=== PATIENT | female | born 2000 | race Caucasian/White ===

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

== ENCOUNTER 2022-01-01 23:30 | Emergency (ER) | payer OTHER ==
[2022-01-01 23:40] VITALS: RESP 16; TEMP 97.1
[2022-01-02] MEDS ORDERED: ORPHENADRINE 30 MG/ML 2 ML VIAL IM STA (01:52)
[2022-01-02] MEDS ORDERED: KETOROLAC 15 MG/ML 1 ML VIAL IM STA (01:53)
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
--- NOTE | 2022-01-02 02:37 | XR ---
EXAMINATION TYPE: XR cervical spine comp DATE OF EXAM: 01/02/2022 COMPARISON: NONE HISTORY: Neck pain TECHNIQUE: 5 views FINDINGS: Cervical vertebra have normal spacing and alignment. Posterior elements are intact. [place] axial facet joint is normal. There are no cervical ribs. Neural foramina appear normal. IMPRESSION: Normal cervical spine exam
[2022-01-02 02:59] VITALS: BP 110/57; PULSE 97
== END 2022-01-02 02:58 | disposition home or self-care (01) ==
LOC: EC 23:30
DX: S16.1XXA Strain of muscle, fascia and tendon at neck level, initial encounter (principal); S29.012A Strain of muscle and tendon of back wall of thorax, initial encounter; J45.909 Unspecified asthma, uncomplicated; F32.A Depression, unspecified; F41.9 Anxiety disorder, unspecified; F17.290 Nicotine dependence, other tobacco product, uncomplicated; Z79.899 Other long term (current) drug therapy; V89.2XXA Person injured in unspecified motor-vehicle accident, traffic, initial encounter; Y92.410 Unspecified street and highway as the place of occurrence of the external cause
CPT/HCPCS: 72050; 99284; 96372 ×2; J2360; J1885

== ENCOUNTER 2022-05-05 00:07 | Observation (INO) | payer OTHER ==
[2022-05-05] MEDS ORDERED: SODIUM CHLORIDE 0.9% 1,000 ML IV STA (01:18)
--- NOTE | 2022-05-05 01:22 | ED ---
General Adult HPI - General Chief complaint: Arrhythmia/Palpitations Stated complaint: Palpitations, Weakness, Nausea Time Seen by Provider: 05/05/22 01:02 Source: patient Mode of arrival: ambulatory Limitations: no limitations - History of Present Illness Initial comments: Dictation was produced using [employer] dictation software. please excuse any g rammatical, word or spelling errors. Chief Complaint: 22-year-old female presents to the emergency department for nausea and chest tightness History of Present Illness: Patient 22-year-old female she was at a concert just today. Patient states she had half an alcoholic beverage. There is a concert states she started to feel some chest tightness nausea and perhaps a little presyncopal. Patient so the medic at the concert word EKG was performed so that her EKG some minor abnormalities and she was told to follow up with the emergency department. Patient has no significant medical history. Patient states she has tightness to the substernal area. Nonradiating not associated w ith diaphoresis. States that her grandfather has history of cardiomyopathy. Denies any shortness of breath. The ROS documented in this emergency department record has been reviewed and confirmed by me. Those systems with pertinent positive or negative responses have been documented in the HPI. All other systems are other negative and/or noncontributory. PHYSICAL EXAM: General Impression: Alert and oriented x3, not in acute distress HEENT: Normocephalic atraumatic, extra-ocular movements intact, pupils equal and reactive to light bilaterally, mucous membranes moist. Cardiovascular: Heart regular rate and rhythm Chest: Able to complete full sentences, no retractions, no tachypnea Abdomen: abdomen soft, non-tender, non-distended, no organomegaly Musculoskeletal: Pulses present and equal in all extremities, no peripheral edema Motor: no focal deficits noted Neurological: CN II-XII grossly intact, no focal motor or sensory deficits noted Skin: Intact with no visualized rashes Psych: Normal affect and mood ED course: 22-year-old well-appearing female presents to the emergency dep artment for chest tightness, presyncope and nausea. vital signs upon arrival are within acceptable limits. EKG shows no signs of ischemia or infarction. Laboratory evaluation obtained. CBC unremarkable. Metabolic panel showed glucose of 72. Patient is given oral glucose. Within improvement to 87. Initial troponin is negative. Disposition rashes are discussed. Patient agreeable to stay for second troponin. Second troponin ordered 4 hours later with elevation 0.018. Patient resting comfortably at the bedside. Patient is agreeable for observation admission with cardiology consultation. Patient given aspirin. EKG interpretation: Ventricular rate 61, normal sinus rhythm,. 152, QS 19, QTC 414. No [place] prolongation, no QTC prolongation, no ST or T-wave changes noted. . Overall, this EKG is unremarkable - Related Data Home Medications Medication Instructions Recorded Confirmed Mirtazapine [Remeron] 15 mg PO HS 01/16/15 01/30/15 Previous Rx's Medication Instructions Recorded RX: Ibuprofen [Motrin] 600 mg PO Q8HR PRN #30 tab 01/30/15 Acetaminophen [Tylenol] 500 mg PO Q4-6H PRN #24 tab 01/02/22 Cyclobenzaprine [Flexeril] 10 mg PO TID PRN #20 tab 01/02/22 RX: Ibuprofen [Motrin] 600 mg PO Q8HR PRN #30 tab 01/02/22 Allergies Allergy/AdvReac Type Severity Reaction Status Date / Time No Known Allergies Allergy Verified 05/05/22 00:48 Review of Systems ROS Statement: Those systems with pertinent positive or pertinent negative responses have been documented in the HPI. ROS Other: All systems not noted in ROS Statement are negative. Past Medical History Past Medical History: Asthma History of Any Multi-Drug Resistant Organisms: None Reported Past Surgical History: Adenoidectomy, Tonsillectomy Past Psychological History: Anxiety, Depression, PTSD Smoking Status: Vaper Past Alcohol Use History: Occasional Past Drug Use History: None Reported General Exam Limitations: no limitations Course Vital Signs 05/05/22 00:48 Temperature 98.2 F Pulse Rate 71 Respiratory 16 Rate Blood Pressure 119/79 O2 Sat by Pulse 98 Oximetry Medical Decision Making - Lab Data Result diagrams: 05/05/22 01:30 05/05/22 01:30 Lab Results 05/05/22 05/05/22 05/05/22 Range/Units 01:30 01:30 01:30 WBC 9.1 (3.8-10.6) k/uL RBC 4.39 (3.80-5.40) m/uL Hgb 12.8 (11.4-16.0) gm/dL Hct 38.8 (34.0-46.0) % MCV 88.3 (80.0-100.0) fL MCH 29.1 (25.0-35.0) pg MCHC 33.0 (31.0-37.0) g/dL RDW 13.5 (11.5-15.5) % Plt Count 330 (150-450) k/uL MPV 7.3 Neutrophils % 54 % Lymphocytes % 35 % Monocytes % 5 % Eosinophils % 4 % Basophils % 0 % Neutrophils # 4.9 (1.3-7.7) k/uL Lymphocytes # 3.2 (1.0-4.8) k/uL Monocytes # 0.5 (0-1.0) k/uL Eosinophils # 0.3 (0-0.7) k/uL Basophils # 0.0 (0-0.2) k/uL Sodium 140 (137-145) mmol/L Potassium 3.7 (3.5-5.1) mmol/L Chloride 103 (98-107) mmol/L Carbon Dioxide 25 (22-30) mmol/L Anion Gap 12 mmol/L BUN 16 (7-17) mg/dL Creatinine 0.42 L (0.52-1.04) mg/dL Est GFR (CKD-EPI)AfAm >90 (>60 ml/min/1.73 sqM) Est GFR (CKD-EPI)NonAf >90 (>60 ml/min/1.73 sqM) Glucose 72 L (74-99) mg/dL POC Glucose (mg/dL) (70-110) mg/dL POC Glu Power Cutting Machine Operator ID Calcium 9.2 (8.4-10.2) mg/dL Magnesium 1.8 (1.6-2.3) mg/dL Troponin I <0.012 (0.000-0.034) ng/mL Urine HCG, Qual (Not Detectd) 05/05/22 05/05/22 05/05/22 Range/Units 01:37 05:03 05:26 WBC (3.8-10.6) k/uL RBC (3.80-5.40) m/uL Hgb (11.4-16.0) gm/dL Hct (34.0-46.0) % MCV (80.0-100.0) fL MCH (25.0-35.0) pg MCHC (31.0-37.0) g/dL RDW (11.5-15.5) % Plt Count (150-450) k/uL MPV Neutrophils % % Lymphocytes % % Monocytes % % Eosinophils % % Basophils % % Neutrophils # (1.3-7.7) k/uL Lymphocytes # (1.0-4.8) k/uL Monocytes # (0-1.0) k/uL Eosinophils # (0-0.7) k/uL Basophils # (0-0.2) k/uL Sodium (137-145) mmol/L Potassium (3.5-5.1) mmol/L Chloride (98-107) mmol/L Carbon Dioxide (22-30) mmol/L Anion Gap mmol/L BUN (7-17) mg/dL Creatinine (0.52-1.04) mg/dL Est GFR (CKD-EPI)AfAm (>60 ml/min/1.73 sqM) Est GFR (CKD-EPI)NonAf (>60 ml/min/1.73 sqM) Glucose (74-99) mg/dL POC Glucose (mg/dL) 87 (70-110) mg/dL POC Glu Power Cutting Machine Operator ID Merle Rojas Calcium (8.4-10.2) mg/dL Magnesium (1.6-2.3) mg/dL Troponin I 0.018 (0.000-0.034) ng/mL Urine HCG, Qual Not Detected (Not Detectd) Disposition Clinical Impression: Chest pain Disposition: ADMITTED IP TO THIS HOSP Condition: Fair Referrals: Mikhail Perez MD [Primary Care Provider] - 1-2 days
[2022-05-05 01:47] LABS: Basophils % (A) 0 %; Eosinophils # (A) 0.3 k/uL (0-0.7); Eosinophils % (A) 4 %; HCT 38.8 % (34.0-46.0); HGB 12.8 gm/dL (11.4-16.0); Lymphocytes # (A) 3.2 k/uL (1.0-4.8); Lymphocytes % (A) 35 %; MCH 29.1 pg (25.0-35.0); MCV 88.3 fL (80.0-100.0); Mean Platelet Volume 7.3; Monocytes # (A) 0.5 k/uL (0-1.0); Monocytes % (A) 5 %; Neutrophils # (A) 4.9 k/uL (1.3-7.7); Neutrophils % (A) 54 %; Platelet Count 330 k/uL (150-450); RBC 4.39 m/uL (3.80-5.40); RDW 13.5 % (11.5-15.5); WBC 9.1 k/uL (3.8-10.6)
[2022-05-05 02:09] LABS: African American GFR (CKD) >90 (>60 ml/min/1.73 sqM); Anion Gap 12 mmol/L; Blood Urea Nitrogen 16 mg/dL (7-17); Calcium 9.2 mg/dL (8.4-10.2); Carbon Dioxide 25 mmol/L (22-30); Chloride 103 mmol/L (98-107); Glucose 72 mg/dL (74-99); Magnesium 1.8 mg/dL (1.6-2.3); Non-African American GFR(CKD) >90 (>60 ml/min/1.73 sqM); Potassium 3.7 mmol/L (3.5-5.1); Sodium 140 mmol/L (137-145)
--- NOTE | 2022-05-05 02:15 | XR ---
EXAMINATION TYPE: XR chest 2V DATE OF EXAM: 05/05/2022 COMPARISON: 05/27/2019 HISTORY: Chest pain TECHNIQUE: FINDINGS: Heart and mediastinum are normal. Lungs are clear. Diaphragm is normal. Bony thorax appears normal. There are chest leads. IMPRESSION: Normal chest. No change.
[2022-05-05] MEDS ORDERED: ASPIRIN 81 MG PO STA (02:56)
[2022-05-05 05:04] LABS: Glucose,Whole Blood 87 mg/dL (70-110)
[2022-05-05] MEDS ORDERED: NITROGLYCERIN SL TABS 0.4 MG TAB SUBLINGUAL PRN (06:30)
--- NOTE | 2022-05-05 09:21 | P.CRDCN ---
History of Present Illness Consult date: 05/05/22 Requesting physician: Heri Mckeon Reason for Consult (text): chest pain Chief complaint: nausea, weakness, dizziness, chest tightness History of present illness: This is a pleasant 22-year-old female patient with a history of asthma, depression and currently vapes. She drinks socially. She was at a concert yesterday and developed some nausea, weakness, dizziness and chest tightness. S he had had only a half of an alcoholic beverage or to this. She sat down with an ice pack and water and was seen at the medic tent there. Apparently an EKG was done and she was told it was abnormal with sinus arrhythmia and a bundle branch block. After the concert she presented to the emergency department for further evaluation. She continues to have chest tightness which has been fairly constant. Chest x-ray showed normal chest, no change. EKG showed sinus rhythm with sinus arrhythmia, normal EKG. Cardiac enzymes have been unremarkable. The patient stable. She has occasional shortness of breath due to her asthma and uses a pro-air inhaler for this. Denies any edema, orthopnea or PND. She's had no palpitations, syncope. Past Medical History Past Medical History: Asthma History of Any Multi-Drug Resistant Organisms: None Reported Past Surgical History: Adenoidectomy, Tonsillectomy Past Psychological History: Anxiety, Depression, PTSD Smoking Status: Vaper Past Alcohol Use History: Occasional Past Drug Use History: None Reported Medications and Allergies Home Medications Medication Instructions Recorded Confirmed Type Albuterol Sulfate [Proair Hfa] 1 - 2 puff INHALATION RT-QID PRN 05/05/22 05/05/22 History Desvenlafaxine [Pristiq ER] 100 mg PO DAILY@1100 05/05/22 05/05/22 History Naproxen [Naprosyn] 500 mg PO BID PRN 05/05/22 05/05/22 History Allergies Allergy/AdvReac Type Severity Reaction Status Date / Time shellfish derived [Shrimp] Allergy Unknown Verified 05/05/22 07:33 Physical Exam Vitals: Vital Signs Temp Pulse Pulse Resp BP BP Pulse Ox 05/05/22 08:16 98.4 F 53 L 18 120/71 97 05/05/22 06:40 118/69 05/05/22 06:37 118/69 05/05/22 00:48 98.2 F 71 16 119/79 98 Intake and Output 05/04/22 05/05/22 05/05/22 22:59 06:59 14:59 Other: Weight 144.242 kg PHYSICAL EXAMINATION: This is a 22-year-old female in no apparent distress at the time of my examination. VITAL SIGNS: Blood pressure 120/71, heart rate 53, respirations 18, temp 98.4F. Patient is 97 % on room air. HEENT: Head is atraumatic, normocephalic. Pupils are equal, round. Sclerae anicteric. Conjunctivae are clear. Mucous membranes of the mouth are moist. Neck is supple. There is no elevated jugular venous pressure. No carotid bruit is heard. CHEST EXAMINATION: Clear to auscultation bilaterally. No wheezes rales or rhonchi. Respirations even and nonlabored. HEART EXAMINATION: Heart regular, positive S1 and S2. No S3. No S4. No clicks, rubs or murmurs. ABDOMEN: Soft, nontender. Bowel sounds are heard. No organomegaly noted. EXTREMITIES: 2+ peripheral pulses with no evidence of peripheral edema and no calf tenderness noted. NEUROLOGIC EXAMINATION: Patient is awake, alert and oriented x3. Results 05/05/22 01:30 05/05/22 01:30 Cardiac Enzymes 05/05/22 05/05/22 Range/Units 01:30 05:26 Troponin I <0.012 0.018 (0.000-0.034) ng/mL CBC 05/05/22 Range/Units 01:30 WBC 9.1 (3.8-10.6) k/uL RBC 4.39 (3.80-5.40) m/uL Hgb 12.8 (11.4-16.0) gm/dL Hct 38.8 (34.0-46.0) % Plt Count 330 (150-450) k/uL Comprehensive Metabolic Panel 05/05/22 Range/Units 01:30 Sodium 140 (137-145) mmol/L Potassium 3.7 (3.5-5.1) mmol/L Chloride 103 (98-107) mmol/L Carbon Dioxide 25 (22-30) mmol/L BUN 16 (7-17) mg/dL Creatinine 0.42 L (0.52-1.04) mg/dL Glucose 72 L (74-99) mg/dL Calcium 9.2 (8.4-10.2) mg/dL Current Medications Generic Name Dose Route Start Last Admin Trade Name Freq PRN Reason Stop Dose Admin Aspirin 325 mg 05/06/22 09:00 Aspirin 325 Mg Tab PO DAILY NEEMA Nitroglycerin 0.4 mg 05/05/22 06:30 Nitroglycerin Sl Tabs 0.4 Mg Tab SUBLINGUAL Q5M PRN Chest Pain Intake and Output 05/04/22 05/05/22 05/05/22 22:59 06:59 14:59 Other: Weight 144.242 kg 05/05/22 01:30 05/05/22 01:30 EKG Interpretations (text) Sinus rhythm was sinus arrhythmia Assessment and Plan Assessment: #1 symptoms of weakness, nausea, dizziness and chest tightness, acute coronary event has been ruled out #2 asthma #3 nicotine dependence, current every day vaper Plan: From cardiology's perspective patient's symptoms do not seem to be cardiac related. We will obtain a 2-D echo with Doppler study to assess cardiac structure and function as well as a regular exercise stress test to rule out any underlying ischemia. If there are no significant abnormalities, from our standpoint, patient may be discharged home today. TRAVEL ACCOMMODATIONS RATER note has been reviewed, I agree with a documented findings and plan of care. Patient was seen and examined.
--- NOTE | 2022-05-05 11:11 | P.HPIM ---
History of Present Illness H&P Date: 05/05/22 History of Presenting Illness: Patient is a very pleasant 22-year-old female with a past medical history of asthma, depression and nicotine dependence via vaping. She presented to the emergency department with a chief complaint of chest pain. Patient was at a music concert yesterday and reportedly had an alcoholic beverage in which she reports only drinking half of when she suddenly developed some nausea, weakness, dizziness, and chest tightness. Patient reports she initially drinks some water but states the symptoms did not subside so she went to the medic tent and was evaluated and had an EKG completed. Patient reports the medic tent told her she had a sinus arrhythmia and that if chest pain continued she needed to go to the emergency department. Patient reports she went back to the concert and after the concert she continued to feel some chest pains that she came in to the emergency department for evaluation. Patient underwent full evaluation in the emergency department and was found to have a normal EKG showing normal sinus rhythm with sinus arrhythmia at 61 bpm with no noted T wave or ST abnormality showing no signs of acute ischemia. CBC and CMP were completed showing no acute abnormalities. Urine hCG was negative for . Troponin was negative at less than 0.012. Chest x-ray negative for acute cardiopulmonary process. Patient admitted under our services with consultation to cardiology. Review of systems: Pertinent positives and negatives as discussed in HPI, a complete review of systems was performed and all other systems are negative. Physical exam: Vital signs reviewed and stable. General: Nontoxic, no distress and appears stated age. Morbidly obese. Derm: Skin warm and dry, normal coloration for ethnicity. Head: Atraumatic, normocephalic and symmetric. Eyes: EOMs intact, no lid lag, and anicteric sclera Mouth: no lip lesions, mucus membranes moist Cardiovascular: regular rate and rhythm with normal S1S2, no murmur, positive posterior tibial pulses bilaterally, and cap refill < 2 seconds. Lungs: Respirations even, regular, and unlabored on room air. Lungs CTA bilaterally, no rhonchi, no rales, no wheezing, and no accessory muscle usage. Abdominal: soft, nontender to palpation, no guarding, no appreciable organomegaly Ext: ROM intact. No gross muscle atrophy, no edema, no contractures Neuro: Speech clear, face symmetrical and CN II-XII grossly intact with no noted focal neuro deficits Psych: Alert and oriented to person, place, time, and situation. Appropriate and pleasant affect. Assessment and Plan of Care: Chest pain, rule out acute coronary event -Cardiology consult, appreciate further recommendations -Telemetry monitoring -Trend troponins -Cardiac diet, NPO at midnight -Aspirin -Urine drug screen -Echocardiogram Asthma -Patient reports asthma controlled via occasional use of Provera inhaler. Patient reports using approximately 4-6 times per week. Nicotine dependence -Recommend stopping vaping. The patient is admitted with an anticipated less than 2 midnight stay for evaluation of chest pain. CODE STATUS: Full code DVT prophylaxis: SCDs Discussed with: Patient, patient's father, and RN Anticipated discharge date: Likely later today Anticipated discharge place: Home A total of 40 minutes was spent on the care of this complex patient more than 50% of the time was spent in counseling and care coordination. Je Downey NP rendered care for this patient independently, reviewed the findings and plan as documented in the note above. I did not physically speak with or examine the patient on this date. Past Medical History Past Medical History: Asthma History of Any Multi-Drug Resistant Organisms: None Reported Past Surgical History: Adenoidectomy, Tonsillectomy Past Anesthesia/Blood Transfusion Reactions: No Reported Reaction Past Psychological History: Anxiety, Depression, PTSD Smoking Status: Vaper Past Alcohol Use History: Occasional Past Drug Use History: None Reported Medications and Allergies Home Medications Medication Instructions Recorded Confirmed Type Albuterol Sulfate [Proair Hfa] 1 - 2 puff INHALATION RT-QID PRN 05/05/22 05/05/22 History Desvenlafaxine [Pristiq ER] 100 mg PO DAILY@1100 05/05/22 05/05/22 History Naproxen [Naprosyn] 500 mg PO BID PRN 05/05/22 05/05/22 History Allergies Allergy/AdvReac Type Severity Reaction Status Date / Time shellfish derived [Shrimp] Allergy Unknown Verified 05/05/22 07:33 Physical Exam Osteopathic Statement: *. No significant issues noted on an osteopathic structural exam other than those noted in the History and Physical/Consult. Vitals: Vital Signs Temp Pulse Pulse Resp BP BP Pulse Ox 05/05/22 08:16 98.4 F 53 L 18 120/71 97 05/05/22 06:40 118/69 05/05/22 06:37 118/69 05/05/22 00:48 98.2 F 71 16 119/79 98 Intake and Output 05/04/22 05/05/22 05/05/22 22:59 06:59 14:59 Other: Weight 144.242 kg 144.242 kg Results CBC & Chem 7: 05/05/22 01:30 05/05/22 01:30 Labs: Abnormal Lab Results - Last 24 Hours (Table) 05/05/22 Range/Units 01:30 Creatinine 0.42 L (0.52-1.04) mg/dL Glucose 72 L (74-99) mg/dL Thrombosis Risk Factor Assmnt - Choose All That Apply Any of the Below Risk Factors Present?: No Other congenital or acquired thrombophilia - If yes, enter type in comment: No
[2022-05-05] MEDS ORDERED: ALBUTEROL NEBULIZED 2.5 MG/3 ML INHALATION PRN (13:13)
--- NOTE | 2022-05-05 18:12 | CA ---
Transthoracic Echo Report Name: oBubacar Patel Age: 22 Gender: F : 2000 Exam Date: 05/05/2022 10:18 Exam Location: [place] [facility] Ht (in): 69 Wt (lb): 318 Ordering Physician: Kiya Gupta Attending/Referring Phys: [id number], Candy Adapted Physical Education Teacher Michelle Law RDCS Procedure CPT: Indications: chest tightness Cardiac Hx: Technical Quality: Technically difficult study Contrast 1: Lumason Total Dose (mL): 4 Contrast 2: Total Dose (mL): MEASUREMENTS (Male / Female) Normal Values 2D ECHO LV Diastolic Diameter PLAX 5.0 cm 4.2 - 5.9 / 3.9 - 5.3 cm LV Systolic Diameter PLAX 3.3 cm IVS Diastolic Thickness 1.1 cm 0.6 - 1.0 / 0.6 - 0.9 cm LVPW Diastolic Thickness 1.2 cm 0.6 - 1.0 / 0.6 - 0.9 cm LV Relative Wall Thickness 0.5 RV Internal Dim ED PLAX 4.1 cm LA Volume 67.8 cm??? 18 - 58 / 22 - 52 cm??? M-MODE Aortic Root Diameter MM 2.9 cm LA Systolic Diameter MM 3.9 cm LA Ao Ratio MM 1.4 AV Cusp Separation MM 2.2 cm DOPPLER AV Peak Velocity 125.4 cm/s AV Peak Gradient 6.3 mmHg LVOT Peak Velocity 99.9 cm/s LVOT Peak Gradient 4.0 mmHg MV Area PHT 3.7 cm??? Mitral E Point Velocity 88.7 cm/s Mitral A Point Velocity 48.9 cm/s Mitral E to A Ratio 1.8 MV Deceleration Time 207.8 ms MV E' Velocity 10.8 cm/s Mitral E to MV E' Ratio 8.2 TR Peak Velocity 216.9 cm/s TR Peak Gradient 18.8 mmHg Right Ventricular Systolic Press 23.4 mmHg FINDINGS Left Ventricle Mildly increased left ventricular wall thickness. Normal left ventricular systolic function with no obvious regional wall motion abnormalities. Left ventricular ejection fraction is estimated at 55-60 %. Right Ventricle Moderate right ventricular dilatation. Right Atrium Normal right atrial size. Left Atrium Moderately increased left atrial volume. No evidence for an atrial septal defect. Mitral Valve Structurally normal mitral valve. No mitral stenosis, regurgitation or prolapse. Aortic Valve No aortic valve stenosis or regurgitation. Tricuspid Valve Mild tricuspid regurgitation.structurally normal tricuspid valve. Pulmonic Valve Trace pulmonic regurgitation.pulmonic valve not well visualized. Pericardium No pericardial effusion. Aorta Normal size aortic root and proximal ascending aorta. CONCLUSIONS 1. Normal left ventricle size and systolic function X 2. Mild tricuspid regurgitation 3. Dilated right ventricle Previewed by: Dr. Kortney Vasquez MD (Electronically Signed) Final Date: 05 May 2022 18:11
[2022-05-05 22:46] LABS: Urine Alcohol Negative (Negative); Urine Barbiturate Negative (Negative); Urine Cocaine Negative (Negative); Urine Methadone Negative (Negative); Urine Opiates Negative (Negative); Urine Phencyclidine Negative (Negative)
[2022-05-06 04:30] VITALS: RESP 16; TEMP 98.4
[2022-05-06 08:21] VITALS: BP 110/69; PULSE 54
[2022-05-06] MEDS ORDERED: ASPIRIN 325 MG TAB PO SCH (09:00)
[2022-05-06 10:37] LABS: Chol/HDL Ratio 3.05 Ratio; LDL Cholesterol,Calculated 70.5 mg/dL (0.0-131.0)
[2022-05-06] MEDS ORDERED: DESVENLAFAXINE SUCCINATE 50 MG TAB.ER.24H PO SCH (11:00)
--- NOTE | 2022-05-06 12:52 | P.PN ---
Subjective Progress Note Date: 05/06/22 This is a pleasant 22-year-old female patient with a history of asthma, depression and currently vapes. She drinks socially. She was at a concert yesterday and developed some nausea, weakness, dizziness and chest tightness. She had had only a half of an alcoholic beverage or to this. She sat down with an ice pack and water and was seen at the medic tent there. Apparently an EKG was done and she was told it was abnormal with sinus arrhythmia and a bundle branch block. After the concert she presented to the emergency department for further evaluation. She continues to have chest tightness which has been fairly constant. Chest x-ray showed normal chest, no change. EKG showed sinus rhythm with sinus arrhythmia, normal EKG. Cardiac enzymes have been unremarkable. The patient stable. She has occasional shortness of breath due to her asthma and uses a pro-air inhaler for this. Denies any edema, orthopnea or PND. She's had no palpitations, syncope. 05/06/2022 Patient was seen and examined resting comfortably in bed. She's had no further complaints of chest discomfort. She's had no dizziness, lightheadedness or syncope. Echocardiogram with Doppler study showed normal LV systolic function with an ejection fraction of 55-60%, mild TR and dilated right ventricle. Exercise stress test was unremarkable. Vital signs have been stable. Objective - Vital Signs Vital signs: Vital Signs Temp 98.4 F 05/06/22 07:00 Pulse 54 L 05/06/22 07:00 Resp 16 05/06/22 03:25 BP 110/69 05/06/22 07:00 Pulse Ox 96 05/06/22 07:00 FiO2 Intake & Output 05/05/22 05/06/22 05/06/22 18:59 06:59 18:59 Weight 144.242 kg Other: # Voids 1 1 - Exam HEENT: Head is atraumatic, normocephalic. Pupils are equal, round. Sclerae anicteric. Conjunctivae are clear. Mucous membranes of the mouth are moist. Neck is supple. There is no elevated jugular venous pressure. No carotid bruit is heard. CHEST EXAMINATION: Clear to auscultation bilaterally. No wheezes rales or rhonchi. Respirations even and nonlabored. HEART EXAMINATION: Heart regular, positive S1 and S2. No S3. No S4. No clicks, rubs or murmurs. ABDOMEN: Soft, nontender. Bowel sounds are heard. No organomegaly noted. EXTREMITIES: 2+ peripheral pulses with no evidence of peripheral edema and no calf tenderness noted. NEUROLOGIC EXAMINATION: Patient is awake, alert and oriented x3. - Labs CBC & Chem 7: 05/05/22 01:30 05/05/22 01:30 Assessment and Plan Assessment: #1 symptoms of weakness, nausea, dizziness and chest tightness, acute coronary event has been ruled out #2 asthma #3 nicotine dependence, current every day vaper Plan: From cardiology's perspective patient's symptoms do not seem to be cardiac related. From our standpoint patient may be discharged home today. STATE PATROL OFFICER note has been reviewed, I agree with a documented findings and plan of care. Patient was seen and examined.
--- NOTE | 2022-05-06 14:09 | P.DS ---
Providers Date of admission: 05/05/22 06:30 Expected date of discharge: 05/06/22 Attending physician: Heri Mckeon MD Consults: 05/05/22 06:30 Consult Physician Urgent Consulting Provider: Kortney Vasquez Consult Reason/Comments: chest pain Do you want consulting provider notified?: Yes Primary care physician: [facility] Course: Discharge Diagnosis: Chest pain, acute coronary event ruled out. Pleurisy likely secondary to vaping associated lung injury inpatient with asthma. Mild intermittent asthma Along with nicotine dependence via vaping, was recommended patient stop all nicotine use. Morbid obesity with BMI 47.0 kg/m, recommend outpatient weight loss management program Hospital Course: Patient is a very pleasant 22-year-old female with a past medical history of asthma, depression and nicotine dependence via vaping. She presented to the emergency department with a chief complaint of chest pain. Patient was at a music concert yesterday and reportedly had an alcoholic beverage in which she reports only drinking half of when she suddenly developed some nausea, weakness, dizziness, and chest tightness. Patient reports she initially drinks some water but states the symptoms did not subside so she went to the medic tent and was evaluated and had an EKG completed. Patient reports the medic tent told her she had a sinus arrhythmia and that if chest pain continued she needed to go to the emergency department. Patient reports she went back to the concert and after the concert she continued to feel some chest pains that she came in to the emergency department for evaluation. Patient underwent full evaluation in the emergency department and was found to have a normal EKG showing normal sinus rhythm with sinus arrhythmia at 61 bpm with no noted T wave or ST abnormality showing no signs of acute ischemia. CBC and CMP were completed showing no acute abnormalities. Urine hCG was negative for . Troponin was negative at less than 0.012. Chest x-ray negative for acute cardiopulmonary process. Patient admitted under our services with consultation to cardiology. echocardiogram completed revealing a normal EF of 55-60% with a dilated right ventricle. D-dimer was completed secondary to concerns of dilated right ventricle d-dimer negative at 0.22. Troponins negative at less than 0.012, 0.018 and less than 0.012. urine drug screen negative. Lipid profile normal findings. Cardiology evaluated and patient underwent an Exercise stress was completed showing a decreased exercise tolerance with patient's reports of chest tightness believed to be noncardiac related as patient had normal EKG response to exercise with no evidence of exercise-induced ischemia. chest pain believed to be secondary to pleurisy likely secondary to vaping associated lung injury inpatient with asthma. cardiology recommending outpatient follow-up in the office. Patient medically stable for discharge at this time. It was recommended patient stop all nicotine use. Physical exam: Vital signs reviewed and stable. General: Nontoxic, no distress and appears stated age. Morbidly obese. Derm: Skin warm and dry, normal coloration for ethnicity. Head: Atraumatic, normocephalic and symmetric. Eyes: EOMs intact, no lid lag, and anicteric sclera Mouth: no lip lesions, mucus membranes moist Cardiovascular: regular rate and rhythm with normal S1S2, no murmur, positive posterior tibial pulses bilaterally, and cap refill < 2 seconds. Lungs: Respirations even, regular, and unlabored on room air. Lungs CTA bilaterally, no rhonchi, no rales, no wheezing, and no accessory muscle usage. Abdominal: soft, nontender to palpation, no guarding, no appreciable organomegaly Ext: ROM intact. No gross muscle atrophy, no edema, no contractures Neuro: Speech clear, face symmetrical and CN II-XII grossly intact with no noted focal neuro deficits Psych: Alert and oriented to person, place, time, and situation. Appropriate and pleasant affect. A total of 39 minutes of time were spent preparing this complex discharge summary. Pt was discharged on 05/06/22 at 10:04 AM. Patient Condition at Discharge: Stable Plan - Discharge Summary Discharge Rx Participant: Yes New Discharge Prescriptions: Continue Naproxen [Naprosyn] 500 mg PO BID PRN PRN Reason: Pain Albuterol Sulfate [Proair Hfa] 1 - 2 puff INHALATION RT-QID PRN PRN Reason: Shortness Of Breath Desvenlafaxine [Pristiq ER] 100 mg PO DAILY@1100 Discharge Medication List Albuterol Sulfate [Proair Hfa] 1 - 2 puff INHALATION RT-QID PRN 05/05/22 [History] Desvenlafaxine [Pristiq ER] 100 mg PO DAILY@1100 05/05/22 [History] Naproxen [Naprosyn] 500 mg PO BID PRN 05/05/22 [History] Follow up Appointment(s)/Referral(s): Kortney Vasquez MD [STAFF PHYSICIAN] - 1 Week Mikhail Perez MD [Primary Care Provider] - 1-2 days Patient Instructions/Handouts: Heart Healthy Diet (DC), Noncardiac Chest Pain (DC), EVALI (E-cigarette or Vaping-Associated Lung Injury) (DC) Activity/Diet/Wound Care/Special Instructions: Activity: As tolerated. Take breaks as needed. Diet: Heart healthy and carb consistent diet. Avoid salts, or foods with hidden salts such as canned or boxed foods and frozen dinners. Extra salt makes your heart work harder and traps the fluid in your body for longer. Special Instructions: Take all of your medications as directed and remember to keep all of your doctor's appointments and follow-up as needed. Thank you for allowing us to participate in your care, it was truly a pleasure having you for our patient!!! Discharge/Stand Alone Forms: Work/School Release / Restrict Discharge Disposition: HOME SELF-CARE
--- NOTE | 2022-05-06 14:57 | CA ---
Exercise Stress Test Report Name: Boubacar Patel Exam Date: 05/05/2022 11:48 Exam Location: [place] [facility] Ht (in): 69 Wt (lb): 318 BSA: 2.52 Ordering Phys: SOFI Referring Phys: FRANCO, Technologist: Rudy Villa Age: 22 Gender: F : 2000 Procedure CPT: Indications: ICD-10 Codes: Patient History: CHEST TIGHTNESS, DIFFICULTY IN BREATHING, CURRENT SMOKER (VAPE) X 1 YEAR, ASTHMA Medications: Meds past 24 hrs: Pretest Chest Pain: STRESS TEST Protocol Exercise Duration (min:sec): 07:[address] Depressions (mm): Angina Score: Davies Score: Resting HR (bpm): 82 Peak HR (bpm): 172 Resting BP (mmHg): 119 / 84 Peak BP (mmHg): 162 / 70 MPHR: 199 Target HR: 169 % MPHR: 86 METS: 8.2 Total Dose: Peak Dose: Atropine: Double Product: 62783 BP Response: Stress Termination: Dyspnea,MAX EXERTION/TARGET HR Stress Symptoms: CHEST TIGHTNESS Stress Summary: The patient's target heart rate was achieved ECG ANALYSIS Resting ECG: Sinus rhythm. Normal conduction. No arrhythmias. Normal repolarization. Stress ECG: No ECG evidence of ischemia with exercise. CONCLUSIONS 1. Decrease exercise tolerance 2. Chest tightness that is probably noncardiac 3. Normal left EKG response to exercise with no evidence of exercise induced ischemia Dr. Kortney Vasquez MD (Electronically Signed) Final Date: 05 May 2022 13:11
== END 2022-05-06 11:38 | disposition home or self-care (01) ==
LOC: EC 00:07 → 6NMEDSUR 06:30
PROVIDERS: ADMIT Internal Medicine; ATTEND Internal Medicine
DX: R07.89 Other chest pain (principal); R09.1 Pleurisy; J45.20 Mild intermittent asthma, uncomplicated; F41.9 Anxiety disorder, unspecified; F32.A Depression, unspecified; I07.1 Rheumatic tricuspid insufficiency; F43.10 Post-traumatic stress disorder, unspecified; F17.290 Nicotine dependence, other tobacco product, uncomplicated; E66.01 Morbid (severe) obesity due to excess calories; Z68.42 Body mass index [BMI] 45.0-49.9, adult; Z32.02 Encounter for pregnancy test, result negative
CPT/HCPCS: 96361 ×2; 96360; 99285; 36415; 93005; 93017; 93306; 85379; 80061; 80048; 83735; 84484; 85025; 81025; 80306; 71046; G0378 ×2; Q9950

== ENCOUNTER 2022-12-15 17:46 | Emergency (ER) | payer OTHER ==
[2022-12-15 18:20] VITALS: BP 135/67; PULSE 58; RESP 16; TEMP 98.2
--- NOTE | 2022-12-15 18:21 | ED ---
General Adult HPI - General Chief complaint: Abdominal Pain Stated complaint: ABD pain - History of Present Illness Initial comments: Patient is a 22-year-old female presenting to the emergency room with complaints of generalized malaise, generalized weakness and dizziness with near- syncope along with abdominal pain and nausea without vomiting. She reports the symptoms all began earlier today while at work. She states that she was evalu ated at urgent care and was advised by urgent care to present to the emergency room for further evaluation. At urgent care she had a flu test that was negative. She did a home COVID test that was also negative. She denies any other complaints or concerns including any chest pain, shortness of breath, diarrhea, fevers or chills. She is currently on her menstrual cycle. - Related Data Home Medications Medication Instructions Recorded Confirmed Albuterol Sulfate [Proair Hfa] 1 - 2 puff INHALATION RT-QID PRN 05/05/22 05/05/22 Desvenlafaxine [Pristiq ER] 100 mg PO DAILY@1100 05/05/22 05/05/22 Naproxen [Naprosyn] 500 mg PO BID PRN 05/05/22 05/05/22 Previous Rx's Medication Instructions Recorded methylPREDNISolone [Medrol Dose 0 mg PO DIRECTED #1 packet 07/16/22 Pack] Allergies Allergy/AdvReac Type Severity Reaction Status Date / Time shellfish derived [Shrimp] Allergy Unknown Verified 12/15/22 18:20 Review of Systems ROS Statement: Those systems with pertinent positive or pertinent negative responses have been documented in the HPI. ROS Other: All systems not noted in ROS Statement are negative. Past Medical History Past Medical History: Asthma History of Any Multi-Drug Resistant Organisms: None Reported Past Surgical History: Adenoidectomy, Tonsillectomy Past Anesthesia/Blood Transfusion Reactions: No Reported Reaction Past Psychological History: Anxiety, Depression, PTSD Smoking Status: Vaper Past Alcohol Use History: Occasional Past Drug Use History: None Reported General Exam - General Exam Comments Initial Comments: Visual Physical Exam Vital signs reviewed General: Well-appearing, nontoxic, no acute distress. Head: Normocephalic, atraumatic Eyes: PERRLA, EOMI ENT: Airway patent Chest: Nonlabored breathing Skin: No visual rash, normal skin tone Neuro: Alert and oriented 3 Musculoskeletal: No gross abnormalities Course Vital Signs 12/15/22 18:16 Temperature 98.2 F Pulse Rate 58 L Respiratory 16 Rate Blood Pressure 135/67 O2 Sat by Pulse 100 Oximetry Medical Decision Making - Medical Decision Making Patient left AGAINST MEDICAL ADVICE prior to completion of workup. - Lab Data Result diagrams: 12/15/22 18:31 12/15/22 18:31 Lab Results 12/15/22 12/15/22 12/15/22 Range/Units 18:31 18:31 20:44 WBC 9.0 (3.8-10.6) k/uL RBC 4.44 (3.80-5.40) m/uL Hgb 12.7 (11.4-16.0) gm/dL Hct 37.5 (34.0-46.0) % MCV 84.5 (80.0-100.0) fL MCH 28.6 (25.0-35.0) pg MCHC 33.8 (31.0-37.0) g/dL RDW 13.3 (11.5-15.5) % Plt Count 365 (150-450) k/uL MPV 7.5 Neutrophils % 65 % Lymphocytes % 27 % Monocytes % 4 % Eosinophils % 2 % Basophils % 0 % Neutrophils # 5.9 (1.3-7.7) k/uL Lymphocytes # 2.4 (1.0-4.8) k/uL Monocytes # 0.3 (0-1.0) k/uL Eosinophils # 0.2 (0-0.7) k/uL Basophils # 0.0 (0-0.2) k/uL Sodium 140 (137-145) mmol/L Potassium 4.6 (3.5-5.1) mmol/L Chloride 106 (98-107) mmol/L Carbon Dioxide 25 (22-30) mmol/L Anion Gap 9 mmol/L BUN 9 (7-17) mg/dL Creatinine 0.46 L (0.52-1.04) mg/dL Est GFR (CKD-EPI)AfAm >90 (>60 ml/min/1.73 sqM) Est GFR (CKD-EPI)NonAf >90 (>60 ml/min/1.73 sqM) Glucose 93 (74-99) mg/dL Plasma Lactic Acid Adriel 0.8 (0.7-2.0) mmol/L Calcium 9.2 (8.4-10.2) mg/dL Total Bilirubin 0.5 (0.2-1.3) mg/dL AST 25 (14-36) U/L ALT 29 (4-34) U/L Alkaline Phosphatase 41 (38-126) U/L Total Protein 7.8 (6.3-8.2) g/dL Albumin 4.4 (3.5-5.0) g/dL Amylase 52 (30-110) U/L Lipase 48 (23-300) U/L Urine Color Urine Appearance (Clear) Urine pH (5.0-8.0) Ur Specific [place] (1.001-1.035) Urine Protein (Negative) Urine Glucose (UA) (Negative) Urine Ketones (Negative) Urine Blood (Negative) Urine Nitrite (Negative) Urine Bilirubin (Negative) Urine Urobilinogen (<2.0) mg/dL Ur Leukocyte Esterase (Negative) Urine RBC (0-5) /hpf Urine WBC (0-5) /hpf Ur Squamous Epith Cells (0-4) /hpf Urine Bacteria (None) /hpf Urine Mucus (None) /hpf Urine HCG, Qual (Not Detectd) 12/15/22 12/15/22 Range/Units 20:52 20:52 WBC (3.8-10.6) k/uL RBC (3.80-5.40) m/uL Hgb (11.4-16.0) gm/dL Hct (34.0-46.0) % MCV (80.0-100.0) fL MCH (25.0-35.0) pg MCHC (31.0-37.0) g/dL RDW (11.5-15.5) % Plt Count (150-450) k/uL MPV Neutrophils % % Lymphocytes % % Monocytes % % Eosinophils % % Basophils % % Neutrophils # (1.3-7.7) k/uL Lymphocytes # (1.0-4.8) k/uL Monocytes # (0-1.0) k/uL Eosinophils # (0-0.7) k/uL Basophils # (0-0.2) k/uL Sodium (137-145) mmol/L Potassium (3.5-5.1) mmol/L Chloride (98-107) mmol/L Carbon Dioxide (22-30) mmol/L Anion Gap mmol/L BUN (7-17) mg/dL Creatinine (0.52-1.04) mg/dL Est GFR (CKD-EPI)AfAm (>60 ml/min/1.73 sqM) Est GFR (CKD-EPI)NonAf (>60 ml/min/1.73 sqM) Glucose (74-99) mg/dL Plasma Lactic Acid Adriel (0.7-2.0) mmol/L Calcium (8.4-10.2) mg/dL Total Bilirubin (0.2-1.3) mg/dL AST (14-36) U/L ALT (4-34) U/L Alkaline Phosphatase (38-126) U/L Total Protein (6.3-8.2) g/dL Albumin (3.5-5.0) g/dL Amylase (30-110) U/L Lipase (23-300) U/L Urine Color Yellow Urine Appearance Cloudy H (Clear) Urine pH 5.5 (5.0-8.0) Ur Specific [place] 1.019 (1.001-1.035) Urine Protein Negative (Negative) Urine Glucose (UA) Negative (Negative) Urine Ketones Negative (Negative) Urine Blood Moderate H (Negative) Urine Nitrite Negative (Negative) Urine Bilirubin Negative (Negative) Urine Urobilinogen <2.0 (<2.0) mg/dL Ur Leukocyte Esterase Moderate H (Negative) Urine RBC 5 (0-5) /hpf Urine WBC 33 H (0-5) /hpf Ur Squamous Epith Cells 9 H (0-4) /hpf Urine Bacteria Rare H (None) /hpf Urine Mucus Rare H (None) /hpf Urine HCG, Qual Not Detected (Not Detectd) Disposition Clinical Impression: Abdominal pain Disposition: Left Against Medical Advice Referrals: Nonstaff,Physician [Primary Care Provider] - 1-2 days Time of Disposition: 21:18
[2022-12-15 18:54] LABS: ALT 29 U/L (4-34); AST 25 U/L (14-36); African American GFR (CKD) >90 (>60 ml/min/1.73 sqM); Albumin 4.4 g/dL (3.5-5.0); Alkaline Phosphatase 41 U/L (38-126); Amylase 52 U/L (30-110); Anion Gap 9 mmol/L; Blood Urea Nitrogen 9 mg/dL (7-17); Calcium 9.2 mg/dL (8.4-10.2); Carbon Dioxide 25 mmol/L (22-30); Chloride 106 mmol/L (98-107); Glucose 93 mg/dL (74-99); Lipase 48 U/L (23-300); Non-African American GFR(CKD) >90 (>60 ml/min/1.73 sqM); Potassium 4.6 mmol/L (3.5-5.1); Sodium 140 mmol/L (137-145); Total Bilirubin 0.5 mg/dL (0.2-1.3); Total Protein 7.8 g/dL (6.3-8.2)
[2022-12-15 18:58] LABS: Basophils % (A) 0 %; Eosinophils # (A) 0.2 k/uL (0-0.7); Eosinophils % (A) 2 %; HCT 37.5 % (34.0-46.0); HGB 12.7 gm/dL (11.4-16.0); Lymphocytes # (A) 2.4 k/uL (1.0-4.8); Lymphocytes % (A) 27 %; MCH 28.6 pg (25.0-35.0); MCHC 33.8 g/dL (31.0-37.0); MCV 84.5 fL (80.0-100.0); Mean Platelet Volume 7.5; Monocytes # (A) 0.3 k/uL (0-1.0); Monocytes % (A) 4 %; Neutrophils # (A) 5.9 k/uL (1.3-7.7); Neutrophils % (A) 65 %; Platelet Count 365 k/uL (150-450); RBC 4.44 m/uL (3.80-5.40); RDW 13.3 % (11.5-15.5)
[2022-12-15 21:34] LABS: Appearance,Urine Cloudy (Clear); Bacteria,Urine Rare /hpf; Bilirubin,Urine Negative (Negative); Blood,Urine Moderate (Negative); Color,Urine Yellow; Glucose,Urine (UA) Negative (Negative); Ketones,Urine Negative (Negative); Leukocyte Esterase,Urine Moderate (Negative); Mucus,Urine Rare /hpf; Nitrite,Urine Negative (Negative); PH, Urine 5.5 (5.0-8.0); Protein,Urine Negative (Negative); RBC,Urine 5 /hpf (0-5); Specific Gravity,Urine 1.019 (1.001-1.035); Squamous Epithelial Cell,Urine 9 /hpf (0-4); Urobilinogen,Urine <2.0 mg/dL (<2.0); WBC,Urine 33 /hpf (0-5)
== END 2022-12-15 21:19 | disposition left against medical advice (07) ==
LOC: EC 17:46
DX: R10.9 Unspecified abdominal pain (principal); J45.909 Unspecified asthma, uncomplicated; F41.9 Anxiety disorder, unspecified; F32.A Depression, unspecified; F17.290 Nicotine dependence, other tobacco product, uncomplicated; Z91.013 Allergy to seafood; Z79.899 Other long term (current) drug therapy; Z53.29 Procedure and treatment not carried out because of patient's decision for other reasons
CPT/HCPCS: 36415; 80053; 81001; 81025; 82150; 83605; 83690; 85025; 99283

== ENCOUNTER 2023-09-06 21:50 | Emergency (ER) | payer OTHER ==
[2023-09-06 21:56] VITALS: BP 131/82; PULSE 80; RESP 18; TEMP 98.3
--- NOTE | 2023-09-06 22:10 | ED ---
Lower Extremity Injury HPI - General Chief Complaint: Extremity Injury, Lower Stated Complaint: Right foot injury Time Seen by Provider: 09/06/23 21:59 Source: patient Mode of arrival: wheelchair Limitations: no limitations - History of Present Illness Initial Comments: This patient is 23-year-old woman who presents to have evaluation of right ankle pain and swelling. The patient states that she had a fall injury on Thursday. The ankle inverted. She states that she developed swelling, pain, and states she can barely put weight on the right ankle. Patient states she went to urgent care where x-rays were done and she was placed into a splint. She subsequently obtained an orthopedic walking boot from a friend. Patient states that she continues to have swelling, pain, decreased range of motion. MD Complaint: ankle injury -: days(s) Injury: Ankle: Right Type of Injury: inversion Severity: moderate Improves With: nothing Worsens With: weight bearing Context: fall Associated Symptoms: snap/pop sensation, swelling, able to partially bear weight Treatments Prior to Arrival: splint - Related Data Home Medications Medication Instructions Recorded Confirmed Albuterol Sulfate [Proair Hfa] 1 - 2 puff INHALATION RT-QID PRN 05/05/22 05/05/22 Desvenlafaxine [Pristiq ER] 100 mg PO DAILY@1100 05/05/22 05/05/22 Naproxen [Naprosyn] 500 mg PO BID PRN 05/05/22 05/05/22 Previous Rx's Medication Instructions Recorded methylPREDNISolone [Medrol Dose 0 mg PO DIRECTED #1 packet 07/16/22 Pack] Ibuprofen [Motrin] 600 mg PO Q8HR PRN #20 tab 09/06/23 Allergies Allergy/AdvReac Type Severity Reaction Status Date / Time shellfish derived [Shrimp] Allergy Unknown Verified 12/15/22 18:20 Review of Systems ROS Statement: Those systems with pertinent positive or pertinent negative responses have been documented in the HPI. ROS Other: All systems not noted in ROS Statement are negative. Constitutional: Denies: fever, weakness Musculoskeletal: Reports: as per HPI, joint swelling, arthralgia Skin: Denies: rash, lesions Past Medical History Past Medical History: Asthma History of Any Multi-Drug Resistant Organisms: None Reported Past Surgical History: Adenoidectomy, Tonsillectomy Additional Past Surgical History / Comment(s): Right shouder surgery Past Anesthesia/Blood Transfusion Reactions: No Reported Reaction Past Psychological History: Anxiety, Depression, PTSD Smoking Status: Vaper Past Alcohol Use History: Occasional Past Drug Use History: None Reported General Exam Limitations: no limitations Cardiovascular Exam: Present: regular rate, normal rhythm, normal heart sounds, other (Normal dorsalis pedis pulse, normal capillary refill.). Absent: systolic murmur, diastolic murmur, rubs, gallop Right Knee exam: Present: normal inspection, full ROM. Absent: tenderness, swelling Lower Leg exam: Present: normal inspection, full ROM. Absent: tenderness, swelling Ankle exam: Present: tenderness, swelling. Absent: full ROM, abrasion, laceration, ecchymosis, deformity, dislocation, erythema Foot/Toe exam: Present: normal inspection, full ROM. Absent: tenderness, swelling Neurovascular tendon exam: Present: no vascular compromise. Absent: pulse deficit, abnormal cap refill, motor deficit, sensory deficit, tendon deficit Neurological exam: Present: alert Course Vital Signs 09/06/23 21:52 Temperature 98.3 F Pulse Rate 80 Respiratory 18 Rate Blood Pressure 131/82 O2 Sat by Pulse 97 Oximetry Medical Decision Making - Medical Decision Making The patient had ankle x-ray that was by my interpretation negative for acute fracture or dislocation. Was pt. sent in by a medical professional or institution (, PA, PRESIDENT & FOUNDER, urgent care, hospital, or intermediate...) When possible be specific @ -[No] Did you speak to anyone other than the patient for history (EMS, parent, family, police, friend...)? What history was obtained from this source @ -[No] Did you review nursing and triage notes (agree or disagree)? Why? @ -[I reviewed and agree with nursing and triage notes] Were old charts reviewed (outside hosp., previous admission, EMS record, old EKG, old radiological studies, urgent care reports/EKG's, intermediate records)? Report findings @ -[No old charts were reviewed] Differential Diagnosis (chest pain, altered mental status, abdominal pain women, abdominal pain men, vaginal bleeding, weakness, fever, dyspnea, syncope, headache, dizziness, GI bleed, back pain, seizure, CVA, palpatations, mental health, musculoskeletal)? @ -[Differential Musculoskeletal Muscular strain, contusion, ligament sprain, fracture, arthritis, septic arthritis, bursitis, cellulitis, muscle spasm, nerve compression, DVT, arterial occlusion, herpes zoster, electrolyte abnormality, tumor.... This is not meant to be in all inclusive list EKG interpreted by me (3pts min.). @ -[As above] X-rays interpreted by me (1pt min.). @ -[Interpreted as above CT interpreted by me (1pt min.). @ -[None done] U/S interpreted by me (1pt. min.). @ -[None done] What testing was considered but not performed or refused? (CT, X-rays, U/S, labs)? Why? @ -[None] What meds were considered but not given or refused? Why? @ -[None] Did you discuss the management of the patient with other professionals (professionals i.e. , PA, PRESIDENT & FOUNDER, lab, RT, psych nurse, social contact worker, panel raiser operator, teacher, nuclear security officer, case mgr)? Give summary @ -[No] Was smoking cessation discussed for >3mins.? @ -[No] Was critical care preformed (if so, how long)? @ -[No] Were there social determinants of health that impacted care today? How? (Homelessness, low income, unemployed, alcoholism, drug addiction, transportation, low edu. Level, literacy, decrease access to med. care, fdc, rehab)? @ -[No] Was there de-escalation of care discussed even if they declined (Discuss DNR or withdrawal of care, Hospice)? DNR status @ -[No] What co-morbidities impacted this encounter? (DM, HTN, Smoking, COPD, CAD, Cancer, CVA, ARF, Chemo, Hep., AIDS, mental health diagnosis, sleep apnea, morbid obesity)? @ -[None] Was patient admitted / discharged? Hospital course, mention meds given and route, prescriptions, significant lab abnormalities, going to OR and other pertinent info. @ -[Patient is 23-year-old woman with pain and swelling after ankle injury. The x-rays are negative. Discussed appropriate further care and follow-up as well as possibility of occult fracture. Discussed return parameters. Patient is placed in splints given her significant discomfort and tenderness. She is given crutches Undiagnosed new problem with uncertain prognosis? @ -[No] Drug Therapy requiring intensive monitoring for toxicity (Heparin, Nitro, Insulin, Cardizem)? @ -[No] Were any procedures done? @ -[No] Diagnosis/symptom? @ -[Acute ankle sprain Acute, or Chronic, or Acute on Chronic? @ -Acute Uncomplicated (without systemic symptoms) or Complicated (systemic symptoms)? @ -[Uncomplicated Side effects of treatment? @ -[No] Exacerbation, Progression, or Severe Exacerbation? @ -[No] Poses a threat to life or bodily function? How? (Chest pain, [place], [place], pneumonia, PE, COPD, DKA, ARF, appy, cholecystitis, CVA, Diverticulitis, Homicidal, Suicidal, threat to staff... and all critical care pts) @ -[No] Disposition Clinical Impression: Ankle sprain Disposition: HOME SELF-CARE Condition: Good Instructions (If sedation given, give patient instructions): Ankle Sprain (ED) Prescriptions: Ibuprofen [Motrin] 600 mg PO Q8HR PRN #20 tab PRN Reason: Pain Is patient prescribed a controlled substance at d/c from ED?: No Referrals: Mikhail Perez MD [Primary Care Provider] - 1-2 days Jt Cheatham DO [Doctor of Osteopathic Medicine] - 1-2 days
--- NOTE | 2023-09-07 00:55 | XR ---
EXAM: XR Right Ankle Complete, 3 or More Views CLINICAL HISTORY: ITS.REASON XR Reason: fall injury TECHNIQUE: Frontal, lateral and oblique views of the right ankle. COMPARISON: No relevant prior studies available. FINDINGS: Bones/joints: Unremarkable. No acute fracture or dislocation. Soft tissues: Generalized soft tissue swelling, preferentially involving the lateral soft tissues. IMPRESSION: 1. No acute fracture or dislocation. 2. Generalized soft tissue swelling, preferentially involving the lateral soft tissues.
== END 2023-09-06 22:48 | disposition home or self-care (01) ==
LOC: EC 21:50
DX: S93.401A Sprain of unspecified ligament of right ankle, initial encounter (principal); J45.909 Unspecified asthma, uncomplicated; F17.290 Nicotine dependence, other tobacco product, uncomplicated; F41.9 Anxiety disorder, unspecified; F32.A Depression, unspecified; Z79.899 Other long term (current) drug therapy; Z91.013 Allergy to seafood; W19.XXXA Unspecified fall, initial encounter
CPT/HCPCS: 99283

== ENCOUNTER 2023-10-11 15:22 | Emergency (ER) | payer OTHER ==
[2023-10-11 15:57] VITALS: RESP 16; TEMP 97.8
--- NOTE | 2023-10-11 16:32 | ED ---
General Adult HPI - General Chief complaint: Extremity Injury, Lower Stated complaint: fell R arm injury Time Seen by Provider: 10/11/23 15:38 Source: patient, RN notes reviewed Mode of arrival: ambulatory Limitations: no limitations - History of Present Illness Initial comments: 23-year-old female presents to the emergency department for evaluation of right shoulder injury. Patient states that she took a fall at her house today causing pain to her right shoulder. She does report surgery on the right shoulder in January of last year. She denies head injury or any other injury. Denies blood thinners. - Related Data Home Medications Medication Instructions Recorded Confirmed Albuterol Sulfate [Proair Hfa] 1 - 2 puff INHALATION RT-QID PRN 05/05/22 05/05/22 Desvenlafaxine [Pristiq ER] 100 mg PO DAILY@1100 05/05/22 05/05/22 Naproxen [Naprosyn] 500 mg PO BID PRN 05/05/22 05/05/22 Previous Rx's Medication Instructions Recorded methylPREDNISolone [Medrol Dose 0 mg PO DIRECTED #1 packet 07/16/22 Pack] Ibuprofen [Motrin] 600 mg PO Q8HR PRN #20 tab 09/06/23 Cyclobenzaprine [Flexeril] 10 mg PO TID PRN #15 tab 10/11/23 Ibuprofen [Motrin] 600 mg PO Q8HR PRN #30 tab 10/11/23 Allergies Allergy/AdvReac Type Severity Reaction Status Date / Time shellfish derived [Shrimp] Allergy Unknown Verified 10/11/23 15:34 Review of Systems ROS Statement: Those systems with pertinent positive or pertinent negative responses have been documented in the HPI. ROS Other: All systems not noted in ROS Statement are negative. Past Medical History Past Medical History: Asthma History of Any Multi-Drug Resistant Organisms: None Reported Past Surgical History: Adenoidectomy, Tonsillectomy Additional Past Surgical History / Comment(s): Right shouder surgery Past Anesthesia/Blood Transfusion Reactions: No Reported Reaction Past Psychological History: Anxiety, Depression, PTSD Smoking Status: Vaper Past Alcohol Use History: Occasional Past Drug Use History: None Reported General Exam Limitations: no limitations General appearance: alert, in no apparent distress Head exam: Present: atraumatic, normocephalic, normal inspection Eye exam: Present: normal appearance, PERRL, EOMI. Absent: scleral icterus, conjunctival injection, periorbital swelling Respiratory exam: Present: normal lung sounds bilaterally. Absent: respiratory distress, wheezes, rales, rhonchi, stridor Cardiovascular Exam: Present: regular rate, normal rhythm, normal heart sounds. Absent: systolic murmur, diastolic murmur, rubs, gallop, clicks Extremities exam: Present: tenderness (Return right shoulder), normal capillary refill, other (Pulses 2+). Absent: full ROM, pedal edema, joint swelling, calf tenderness Back exam: Present: normal inspection Neurological exam: Present: alert, oriented X3 Psychiatric exam: Present: normal affect, normal mood Skin exam: Present: warm, dry, intact. Absent: normal color (Ecchymosis to right shoulder), rash Course Vital Signs 10/11/23 10/11/23 15:29 18:03 Temperature 97.8 F Pulse Rate 91 50 L Respiratory 16 16 Rate Blood Pressure 125/83 144/63 O2 Sat by Pulse 96 99 Oximetry Medical Decision Making - Medical Decision Making Was pt. sent in by a medical professional or institution (, PA, WEAPONS SYSTEM INSTRUMENT MECHANIC, urgent care, hospital, or snf...) When possible be specific @ -No Did you speak to anyone other than the patient for history (EMS, parent, family, police, friend...)? What history was obtained from this source @ -No Did you review nursing and triage notes (agree or disagree)? Why? @ -I reviewed and agree with nursing and triage notes Were old charts reviewed (outside hosp., previous admission, EMS record, old EKG, old radiological studies, urgent care reports/EKG's, snf records)? Report findings @ -No old charts were reviewed Differential Diagnosis (chest pain, altered mental status, abdominal pain women, abdominal pain men, vaginal bleeding, weakness, fever, dyspnea, syncope, headache, dizziness, GI bleed, back pain, seizure, CVA, palpatations, mental health, musculoskeletal)? @ -Differential Musculoskeletal Muscular strain, contusion, ligament sprain, fracture, arthritis, septic arthritis, bursitis, cellulitis, muscle spasm, nerve compression, DVT, arterial occlusion, herpes zoster, electrolyte abnormality, tumor.... This is not meant to be in all inclusive list EKG interpreted by me (3pts min.). @ -None X-rays interpreted by me (1pt min.). @ -X-ray right shoulder obtained which shows no acute fracture CT interpreted by me (1pt min.). @ -None done U/S interpreted by me (1pt. min.). @ -None done What testing was considered but not performed or refused? (CT, X-rays, U/S, labs)? Why? @ -None What meds were considered but not given or refused? Why? @ -None Did you discuss the management of the patient with other professionals (professionals i.e. , PA, WEAPONS SYSTEM INSTRUMENT MECHANIC, lab, RT, psych nurse, social services director, fountain roller assembler, teacher, founder chairman and chief creative officer, case filler)? Give summary @ -No Was smoking cessation discussed for >3mins.? @ -No Was critical care preformed (if so, how long)? @ -No Were there social determinants of health that impacted care today? How? ( Homelessness, low income, unemployed, alcoholism, drug addiction, transportation, low edu. Level, literacy, decrease access to med. care, long term, rehab)? @ -No Was there de-escalation of care discussed even if they declined (Discuss DNR or withdrawal of care, Hospice)? DNR status @ -No What co-morbidities impacted this encounter? (DM, HTN, Smoking, COPD, CAD, Cancer, CVA, ARF, Chemo, Hep., AIDS, mental health diagnosis, sleep apnea, morbid obesity)? @ -None Was patient admitted / discharged? Hospital course, mention meds given and route, prescriptions, significant lab abnormalities, going to OR and other pertinent info. @ -Discharge. Patient presented to the emergency department for evaluation of right shoulder injury from a fall. She denies any other injury, denies head injury, blood thinners. X-rays of the right shoulder obtained which showed no acute fracture. Advised patient on findings of x-ray and to follow-up with her orthopedic provider for persistent symptoms. Advised rest, ice, elevation, Tylenol and Motrin for continued pain. Patient understanding agreeable plan. Patient stable to discharge. Case discussed with Dr. Ying Undiagnosed new problem with uncertain prognosis? @ -No Drug Therapy requiring intensive monitoring for toxicity (Heparin, Nitro, Insulin, Cardizem)? @ -No Were any procedures done? @ -No Diagnosis/symptom? @ -Shoulder contusion Acute, or Chronic, or Acute on Chronic? @ -Acute Uncomplicated (without systemic symptoms) or Complicated (systemic symptoms)? @ -Uncomplicated Side effects of treatment? @ -No Exacerbation, Progression, or Severe Exacerbation? @ -No Poses a threat to life or bodily function? How? (Chest pain, [place], [place], pneumonia, PE, COPD, DKA, ARF, appy, cholecystitis, CVA, Diverticulitis, Homicidal, Suicidal, threat to staff... and all critical care pts) @ -No Disposition Clinical Impression: Right shoulder strain Disposition: HOME SELF-CARE Condition: Stable Instructions (If sedation given, give patient instructions): Shoulder Sprain (ED) Additional Instructions: Please follow up with your orthopedic doctor. Return to the emergency department for new or worsening symptoms. Prescriptions: Cyclobenzaprine [Flexeril] 10 mg PO TID PRN #15 tab PRN Reason: Muscle Spasm Ibuprofen [Motrin] 600 mg PO Q8HR PRN #30 tab PRN Reason: Pain Is patient prescribed a controlled substance at d/c from ED?: No Referrals: Mikhail Perez MD [Primary Care Provider] - 1-2 days
[2023-10-11] MEDS: KETOROLAC 15 MG/ML 1 ML VIAL IM STA (17:04)
--- NOTE | 2023-10-11 17:21 | XR ---
EXAMINATION TYPE: XR shoulder complete RT DATE OF EXAM: 10/11/2023 5:16 PM CLINICAL INDICATION:Female, 23 years old with history of fall; H COMPARISON: None. TECHNIQUE: The right shoulder was examined in AP, internally rotated and scapular Y projections. FINDINGS: No evidence of acute osseous pathology, joint dislocation, or soft tissue swelling. The remaining por tions of the visualized chest are unremarkable. IMPRESSION: No acute osseous pathology.
[2023-10-11 18:26] VITALS: BP 144/63; PULSE 50
== END 2023-10-11 18:04 | disposition home or self-care (01) ==
LOC: EC 15:22
DX: S46.911A Strain of unspecified muscle, fascia and tendon at shoulder and upper arm level, right arm, initial encounter (principal); J45.909 Unspecified asthma, uncomplicated; F41.9 Anxiety disorder, unspecified; F32.A Depression, unspecified; F17.290 Nicotine dependence, other tobacco product, uncomplicated; Z79.899 Other long term (current) drug therapy; Z91.013 Allergy to seafood; W18.30XA Fall on same level, unspecified, initial encounter; Y92.009 Unspecified place in unspecified non-institutional (private) residence as the place of occurrence of the external cause
CPT/HCPCS: 73030; 99284; 96372; J1885; 99283

== ENCOUNTER 2023-11-13 08:23 | Emergency (ER) | payer OTHER ==
[2023-11-13] MEDS: HYDROcodone/APAP 5-325MG 1 EACH TAB PO STA (09:45)
--- NOTE | 2023-11-13 10:33 | XR ---
EXAMINATION TYPE: XR ankle complete RT DATE OF EXAM: 11/13/2023 COMPARISON: 09/06/2023 HISTORY: 23-year-old female with pain after fall 6 months ago TECHNIQUE: 3 views FINDINGS: Mild circumferential soft tissue swelling. Os trigonum. Small plantar heel spur. Ankle mort ise appears congruent. Talar dome appears intact. No acute fracture, subluxation, dislocation seen. IMPRESSION: Mild residual circumferential soft tissue swelling. No acute osseous abnormality seen.
--- NOTE | 2023-11-13 10:38 | ED ---
Extremity Problem HPI - General Chief complaint: Extremity Problem,Nontraumatic Stated complaint: Pain in right foot Time Seen by Provider: 11/13/23 08:31 Source: patient, RN notes reviewed Mode of arrival: ambulatory Limitations: no limitations - History of Present Illness Initial comments: 23-year-old female presents emergency department complaint of ankle pain. Patient states she had injury a while back that she is seeing Dr. Cheatham for. She states that she was doing some moving this past few days and states that she had increasing pain she is scheduled to see Dr. Holley for follow-up in 3 days. Patient denies any knee pain states it is painful to ambulate. Patient states there is significant swelling. - Related Data Home Medications Medication Instructions Recorded Confirmed Albuterol Sulfate [Proair Hfa] 1 - 2 puff INHALATION RT-QID PRN 05/05/22 05/05/22 Desvenlafaxine [Pristiq ER] 100 mg PO DAILY@1100 05/05/22 05/05/22 Naproxen [Naprosyn] 500 mg PO BID PRN 05/05/22 05/05/22 Previous Rx's Medication Instructions Recorded methylPREDNISolone [Medrol Dose 0 mg PO DIRECTED #1 packet 07/16/22 Pack] Ibuprofen [Motrin] 600 mg PO Q8HR PRN #20 tab 09/06/23 Cyclobenzaprine [Flexeril] 10 mg PO TID PRN #15 tab 10/11/23 Ibuprofen [Motrin] 600 mg PO Q8HR PRN #30 tab 10/11/23 Ibuprofen [Motrin] 600 mg PO Q8HR PRN #20 tab 11/13/23 Allergies Allergy/AdvReac Type Severity Reaction Status Date / Time shellfish derived [Shrimp] Allergy Unknown Verified 11/13/23 08:37 Review of Systems ROS Statement: Those systems with pertinent positive or pertinent negative responses have been documented in the HPI. ROS Other: All systems not noted in ROS Statement are negative. Past Medical History Past Medical History: Asthma History of Any Multi-Drug Resistant Organisms: None Reported Past Surgical History: Adenoidectomy, Tonsillectomy Additional Past Surgical History / Comment(s): Right shouder surgery Past Anesthesia/Blood Transfusion Reactions: No Reported Reaction Past Psychological History: Anxiety, Depression, PTSD Smoking Status: Current every day smoker, Vaper Past Alcohol Use History: Occasional Past Drug Use History: Marijuana General Exam Limitations: no limitations General appearance: alert, in no apparent distress Head exam: Present: atraumatic, normocephalic, normal inspection Eye exam: Present: normal appearance, PERRL, EOMI. Absent: scleral icterus, conjunctival injection, periorbital swelling Respiratory exam: Present: normal lung sounds bilaterally. Absent: respiratory distress, wheezes, rales, rhonchi, stridor Cardiovascular Exam: Present: regular rate, normal rhythm, normal heart sounds. Absent: systolic murmur, diastolic murmur, rubs, gallop, clicks Extremities exam: Present: other (Right ankle significant swelling, neurovascular intact) Course Vital Signs 11/13/23 11/13/23 08:35 11:37 Temperature 98.4 F 98.7 F Pulse Rate 78 77 Respiratory 20 18 Rate Blood Pressure 127/85 132/70 O2 Sat by Pulse 99 98 Oximetry Medical Decision Making - Medical Decision Making Was pt. sent in by a medical professional or institution (, PA, INSURANCE SALES EXECUTIVE, urgent care, hospital, or group home...) When possible be specific @ -No Did you speak to anyone other than the patient for history (EMS, parent, family, police, friend...)? What history was obtained from this source @ -No Did you review nursing and triage notes (agree or disagree)? Why? @ -I reviewed and agree with nursing and triage notes Were old charts reviewed (outside hosp., previous admission, EMS record, old EKG, old radiological studies, urgent care reports/EKG's, group home records)? Report findings @ -No old charts were reviewed Differential Diagnosis (chest pain, altered mental status, abdominal pain women, abdominal pain men, vaginal bleeding, weakness, fever, dyspnea, syncope, headache, dizziness, GI bleed, back pain, seizure, CVA, palpatations, mental health, musculoskeletal)? @ -Ankle sprain, ankle fracture EKG interpreted by me (3pts min.). @ -None X-rays interpreted by me (1pt min.). @ -[X-ray right ankle showing diffuse swelling no acute fracture CT interpreted by me (1pt min.). @ -None done U/S interpreted by me (1pt. min.). @ -None done What testing was considered but not performed or refused? (CT, X-rays, U/S, labs)? Why? @ -None What meds were considered but not given or refused? Why? @ -None Did you discuss the management of the patient with other professionals (professionals i.e. , PA, INSURANCE SALES EXECUTIVE, lab, RT, psych nurse, mental health social worker, heating technician, teacher, chief green officer, manager case management)? Give summary @ -No Was smoking cessation discussed for >3mins.? @ -No Was critical care preformed (if so, how long)? @ -No Were there social determinants of health that impacted care today? How? (Homelessness, low income, unemployed, alcoholism, drug addiction, transportation, low edu. Level, literacy, decrease access to med. care, long-term, rehab)? @ -No Was there de-escalation of care discussed even if they declined (Discuss DNR or withdrawal of care, Hospice)? DNR status @ -No What co-morbidities impacted this encounter? (DM, HTN, Smoking, COPD, CAD, Cancer, CVA, ARF, Chemo, Hep., AIDS, mental health diagnosis, sleep apnea, morbid obesity)? @ -None Was patient admitted / discharged? Hospital course, mention meds given and route, prescriptions, significant lab abnormalities, going to OR and other pertinent info. @ -[Discharge patient has right ankle sprain will follow-up with her orthopedic surgeon return plans discussed Undiagnosed new problem with uncertain prognosis? @ -No Drug Therapy requiring intensive monitoring for toxicity (Heparin, Nitro, Insulin, Cardizem)? @ -No Were any procedures done? @ -No Diagnosis/symptom? @ -Right ankle sprain Acute, or Chronic, or Acute on Chronic? @ -Acute Uncomplicated (without systemic symptoms) or Complicated (systemic symptoms)? @ -Uncomplicated Side effects of treatment? @ -No Exacerbation, Progression, or Severe Exacerbation? @ -No Poses a threat to life or bodily function? How? (Chest pain, [place], [place], pneumonia, PE, COPD, DKA, ARF, appy, cholecystitis, CVA, Diverticulitis, Homicidal, Suicidal, threat to staff... and all critical care pts) @ -No Disposition Clinical Impression: Right ankle pain Disposition: HOME SELF-CARE Condition: Stable Instructions (If sedation given, give patient instructions): Ankle Sprain (ED) Additional Instructions: Please return to the Emergency Department if symptoms worsen or any other concerns. Prescriptions: Ibuprofen [Motrin] 600 mg PO Q8HR PRN #20 tab PRN Reason: Pain Is patient prescribed a controlled substance at d/c from ED?: No Referrals: Mikhail Perez MD [Primary Care Provider] - 1-2 days Time of Disposition: 10:38
[2023-11-13] MEDS: ACET/COD 300 MG/30 MG STARTER PACK 6 TAB BTL PO STA (10:44)
[2023-11-13 12:14] VITALS: BP 132/70; PULSE 77; RESP 18; TEMP 98.7
== END 2023-11-13 10:55 | disposition home or self-care (01) ==
LOC: EC 08:23
DX: M25.571 Pain in right ankle and joints of right foot (principal); J45.909 Unspecified asthma, uncomplicated; F41.9 Anxiety disorder, unspecified; F32.A Depression, unspecified; F17.290 Nicotine dependence, other tobacco product, uncomplicated; F12.90 Cannabis use, unspecified, uncomplicated; Z79.899 Other long term (current) drug therapy; Z91.013 Allergy to seafood
CPT/HCPCS: 99283

== ENCOUNTER → 2024-01-26 | Outpatient (CLI) | payer OTHER ==
[2024-01-26 15:50] VITALS: BP 115/74; PULSE 60; RESP 16; TEMP 98.2
--- NOTE | 2024-01-26 16:46 | P.SLEEP ---
History of Present Illness H&P Date: 01/26/24 This is a 23-year-old female patient is coming in for issues related to poor sleep quality. The patient has history of chronic depression and currently she is on Pristiq. She is morbidly obese with a body mass index of 45.8. She is not absolutely sure if she snores. Currently she is working at the [employer] he reports he ran and she works afternoon shifts from 4 PM till 11:30 PM. She is at home is around midnight. She goes to bed at around 3 AM. It takes her sometimes more than 30 minutes to fall asleep. She ultimately gets out of bed at around 1 PM the next day. She has been maintaining this schedule for a long period of time. She has had sleep issues since puberty and this is not a new problem. In fact, this is a chronic problem has been going on for many years. 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 She has delayed sleep phase syndrome. At the same time, she reports that her sleep quality is poor. She has frequent arousals. No clear history of snoring. At times, she sleep talks. When she wakes up, she feels tired and not refreshed. She wakes up tired and she is worried about her sleep. She is unable to get up at earlier times. In fact, she has tried different methods to wake her up including alarms and other individuals to help her to wake up in the morning and all these measures have failed. She wants her sleep quality to be evaluated by a screening polysomnography. No grinding of the teeth. No sleepwalking. Occasional sleep talking. Denies having any restlessness in lower extremities. Does not take any naps during the day. She is to be morbidly obese and she has lost around 100 pounds over the past 5 years according to her. She vapes. She is no history of smoking. Also substance abuse. No history of alcoholism. No history of head trauma. No history of meningitis. There may be a vague history of PTSD in addition to her history of depression. Review of Systems Constitutional: Reports daytime sleepiness, Reports fatigue, Reports weight loss Eyes: denies as per HPI, denies blurred vision, denies bulging eye, denies decreased vision, denies diplopia, denies discharge, denies dry eye, denies irritation, denies itching, denies pain, denies photophobia, denies loss of peripheral vision, denies loss of vision, denies tunnel vision/blind spots Ears: deny: decreased hearing, ear discharge, earache, tinnitus Ears, nose, mouth and throat: Reports as per HPI Breasts: absent: as per HPI, change in shape, gynecomastia, masses, nipple discharge, pain, skin changes, swelling Cardiovascular: Reports as per HPI Respiratory: Reports as per HPI Gastrointestinal: Reports as per HPI Genitourinary: Reports as per HPI Menstruation: Reports as per HPI Musculoskeletal: Reports as per HPI Musculoskeletal: absent: ankle pain, ankle stiffness, ankle swelling Integumentary: Reports as per HPI Neurological: Reports as per HPI Psychiatric: Reports anxiety, Reports change in sleep habits, Reports depression, Reports hypersomnia, Reports insomnia, Reports mood swings, Reports sleep disturbances Endocrine: Reports as per HPI, Reports fatigue Hematologic/Lymphatic: Reports as per HPI Allergic/Immunologic: Reports as per HPI Past Medical History Past Medical History: Asthma Additional Past Medical History / Comment(s): Obesity, anxiety, depression, PTSD, chronic insomnia History of Any Multi-Drug Resistant Organisms: None Reported Past Surgical History: Adenoidectomy, Tonsillectomy Additional Past Surgical History / Comment(s): Right shouder surgery Past Anesthesia/Blood Transfusion Reactions: No Reported Reaction Past Psychological History: Anxiety, Depression, PTSD Smoking Status: Current every day smoker, Vaper Past Alcohol Use History: Occasional Past Drug Use History: Marijuana - Past Family History Father Family Medical History: Asthma, Coronary Artery Disease (CAD), Sleep Apnea/CPAP/BIPAP Additional Family Medical History / Comment(s): insomnia, snoring, mental illness (depression,anxiety) Mother Family Medical History: Cancer Additional Family Medical History / Comment(s): mental illness (anxiety, depression) Medications and Allergies Home Medications Medication Instructions Recorded Confirmed Type Albuterol Sulfate [Proair Hfa] 1 - 2 puff INHALATION RT-QID PRN 05/05/22 01/26/24 History Desvenlafaxine [Pristiq ER] 200 mg PO DAILY 05/05/22 01/26/24 History Naproxen [Naprosyn] 500 mg PO BID PRN 05/05/22 05/05/22 History methylPREDNISolone [Medrol Dose 0 mg PO DIRECTED #1 packet 07/16/22 Rx Pack] Ibuprofen [Motrin] 600 mg PO Q8HR PRN #20 tab 09/06/23 Rx Cyclobenzaprine [Flexeril] 10 mg PO TID PRN #15 tab 10/11/23 Rx Ibuprofen [Motrin] 600 mg PO Q8HR PRN #30 tab 10/11/23 Rx Ibuprofen [Motrin] 600 mg PO Q8HR PRN #20 tab 11/13/23 Rx hydrOXYzine HCL 25 mg PO TID PRN 01/26/24 01/26/24 History Allergies Allergy/AdvReac Type Severity Reaction Status Date / Time shellfish derived [Shrimp] Allergy Unknown Verified 11/13/23 08:37 Physical Exam Vitals: Vital Signs Temp Pulse Resp BP Pulse Ox 01/26/24 15:35 98.2 F 60 16 115/74 98 Intake and Output 01/26/24 01/26/24 01/26/24 06:59 14:59 22:59 Other: Weight 138.799 kg Morbidly obese, calm and comfortable no acute distress. Body mass index is 45.8. The patient appeared well nourished and normally developed. Vital signs as documented. Head exam is unremarkable. No scleral icterus or corneal arcus noted. Neck is without jugular venous distension, thyromegaly, or carotid bruits. Carotid upstrokes are brisk bilaterally. Lungs are clear to auscultation and percussion. Cardiac exam reveals the PMI to be normally sized and situated. Rhythm is regular. First and second heart sounds normal. No murmurs, rubs or gallops. Abdominal exam reveals normal bowel sounds, no masses, no organomegaly and no aortic enlargement. Extremities are nonedematous and both femoral and pedal pulses are normal. Examination of the skin revealed no evidence of significant rashes, suspicious appearing nevi or other concerning lesions. Neurologically, the patient is awake and alert and the patient does not have any focal neurological deficit. Cranial nerves are essentially intact. Assessment and Plan Plan: Delayed sleep phase syndrome Comorbid insomnia, possibly has sleep maintenance insomnia, possibility of obstructive sleep apnea cannot be ruled out specially with her morbid obese body habitus with a BMI of 45.8. Chronic anxiety/depression with possible PTSD maintained on Pristiq Morbid obesity with a BMI of 45.8 Poor sleep hygiene measures Chronic fatigue and hypersomnia with an [place] score of 7 Plan Discussed with the patient principles of sleep hygiene Discussed with the patient and various methods to regulate delayed sleep phase syndrome. This included gradual change in her sleep schedule by moving the time to get out of bed to an earlier hour along with light stimulation therapy in the forensic chemist hours. The patient made it clear to me that she is unable to implement those principles as she has tried them in the past and all of these measures have failed. Not a candidate for any form of hypnotics at this point Continue Jeanie Perform a polysomnography to evaluate her sleep quality and rule out any other comorbidities affecting her sleep quality and ability to maintain sleep Continue efforts to lose weight Will continue to follow. Sleep Note - Sleep Data ESS Total: 7 - Sleep Note Sleep Note: Temperature: 98.2 F Pulse Rate: 60 Respiratory Rate: 16 Blood Pressure: 115/74 SpO2: 98 Height: 5 ft 8.5 in Weight: 138.799 kg BMI: Neck Circumference: 15
== END ==
LOC: 3 N SLEEP 15:02
PROVIDERS: ATTEND Internal Medicine Critical Care Medicine
DX: G47.30 Sleep apnea, unspecified (principal); G47.00 Insomnia, unspecified; F41.9 Anxiety disorder, unspecified; F32.A Depression, unspecified; F43.10 Post-traumatic stress disorder, unspecified; R53.82 Chronic fatigue, unspecified; E66.01 Morbid (severe) obesity due to excess calories; Z68.42 Body mass index [BMI] 45.0-49.9, adult; Z91.013 Allergy to seafood
CPT/HCPCS: 99211

== ENCOUNTER → 2024-04-29 | Outpatient (CLI) | payer OTHER | END | disposition home or self-care (01) | LOC: LABPRL 01:45 | PROVIDERS: ATTEND Family Medicine | DX: F32.A Depression, unspecified (principal); F41.9 Anxiety disorder, unspecified; I95.1 Orthostatic hypotension; E66.01 Morbid (severe) obesity due to excess calories; F17.290 Nicotine dependence, other tobacco product, uncomplicated; J45.20 Mild intermittent asthma, uncomplicated; R79.89 Other specified abnormal findings of blood chemistry; Z68.42 Body mass index [BMI] 45.0-49.9, adult | CPT/HCPCS: 80053; 82607; 85025 ==

== ENCOUNTER → 2024-06-01 | Outpatient (CLI) | payer OTHER ==
--- NOTE | 2024-06-01 14:02 | MR ---
EXAMINATION TYPE: MR cervical spine wo con DATE OF EXAM: 06/01/2024 11:38 AM CLINICAL INDICATION: Female, 24 years old with history of M47.812 SPONDYLOSIS W/O MYELOPATHY OR RADIC ULOPATH; PHH, Neck pain, headaches, RUE radiculopathy. COMPARISON: 05/06/2024. TECHNIQUE: Multi planar, multi sequence imaging was performed utilizing: T1-weighted, T2-weighted, an d turbo inversion recovery imaging of the cervical spine. IV Contrast: cc (none if empty) FINDINGS: Alignment: The cervical vertebral bodies have preserved heights. Alignment is within normal limits gi mark patient positioning. Bones: Bone signal is within normal limits. No abnormal bone marrow edema on inversion recovery seque nces. Cord: The spinal cord is unremarkable with regards to their signal intensity and morphology. Discs: Intervertebral disc signal is maintained. C2-C3: No significant disc pathology. The spinal canal is patent. No neural foraminal stenosis. C3-C4: No significant disc pathology. The spinal canal is patent. No neural foraminal stenosis. C4-C5: No significant disc pathology. The spinal canal is patent. No neural foraminal stenosis. C5-C6: No significant disc pathology. The spinal canal is patent. No neural foraminal stenosis. C6-C7: No significant disc pathology. The spinal canal is patent. No neural foraminal stenosis. C7-T1: No significant disc pathology. The spinal canal is patent. No neural foraminal stenosis. Other: None. IMPRESSION: 1. No evidence for disc herniation or significant spinal canal stenosis. 2. No significant disc degeneration with associated osteoarthritic changes. [facility], , 06/01/2024 2:00 PM
== END | disposition home or self-care (01) ==
LOC: RADMRIMAIN 10:56
PROVIDERS: ATTEND Orthopaedic Surgery
DX: M47.22 Other spondylosis with radiculopathy, cervical region (principal)
CPT/HCPCS: 72141

== ENCOUNTER → 2024-06-27 | Outpatient (CLI) | payer OTHER ==
--- NOTE | 2024-06-30 20:53 | MR ---
EXAMINATION TYPE: MRI right shoulder without IV contrast DATE OF EXAM: 06/27/2024 COMPARISON: 10/03/2023 radiographs HISTORY: Right shoulder pain TECHNIQUE: Multiplanar, multisequence imaging of the right shoulder shoulder is performed without con trast. FINDINGS: Rotator Cuff: Mild insertional tendinopathy of the anterior supraspinatus tendon. Remaining rotator c uff tendons are intact. No rotator cuff muscle atrophy or edema. Acromioclavicular Joint: Alignment is maintained. No significant effusion or degenerative changes. Glenohumeral Joint: No high-grade chondral defects. Alignment is maintained. No significant effusion. Labrum: No displaced labral tear or para labral cysts. Biceps Tendon: Mild intracapsular biceps tendinopathy without tear. Extracapsular biceps tendon is in tact and positioned within the groove. Bone marrow signal: Negative for fracture or marrow replacement. Small piece of pelvic cyst along the posterior humeral head. Other: No significant fluid in the subacromial/subdeltoid bursa. IMPRESSION: 1. Mild insertional tendinopathy of the anterior supraspinatus tendon. Negative for rotator cuff tend on tear. 2. Intact acromioclavicular and glenohumeral joints. 3. Mild intracapsular biceps tendinopathy. [facility], Workstation: [id number], 06/30/2024 8:51 PM
== END | disposition home or self-care (01) ==
LOC: RADMRIMAIN 20:12
PROVIDERS: ATTEND Orthopaedic Surgery
DX: M75.21 Bicipital tendinitis, right shoulder (principal)

== ENCOUNTER 2024-08-23 21:04 | Emergency (ER) | payer OTHER ==
--- NOTE | 2024-08-23 21:20 | ED ---
General Adult HPI - General Stated complaint: Laceration on right pinky Time Seen by Provider: 08/23/24 21:18 Source: patient, RN notes reviewed - History of Present Illness Initial comments: This is a 24-year-old female presenting to the emergency department for chief complaint of a distal right fifth digit laceration that occurred approxi-1 hour prior to arrival. 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 Patient is unaware when her last tetanus vaccination was. Denies paresthesias or loss of range of motion of the digit. No other acute complaints at this time. - Related Data Home Medications Medication Instructions Recorded Confirmed Albuterol Sulfate [Proair Hfa] 1 - 2 puff INHALATION RT-QID PRN 05/05/22 Desvenlafaxine [Pristiq ER] 200 mg PO DAILY 05/05/22 01/26/24 Naproxen [Naprosyn] 500 mg PO BID PRN 05/05/22 05/05/22 hydrOXYzine HCL 25 mg PO TID PRN 01/26/24 01/26/24 Previous Rx's Medication Instructions Recorded methylPREDNISolone [Medrol Dose 0 mg PO DIRECTED #1 packet 07/16/22 Pack] Ibuprofen [Motrin] 600 mg PO Q8HR PRN #20 tab 09/06/23 Cyclobenzaprine [Flexeril] 10 mg PO TID PRN #15 tab 10/11/23 Ibuprofen [Motrin] 600 mg PO Q8HR PRN #30 tab 10/11/23 Ibuprofen [Motrin] 600 mg PO Q8HR PRN #20 tab 11/13/23 Allergies Allergy/AdvReac Type Severity Reaction Status Date / Time shellfish derived [Shrimp] Allergy Unknown Verified 08/23/24 21:41 Review of Systems ROS Statement: Those systems with pertinent positive or pertinent negative responses have been documented in the HPI. ROS Other: All systems not noted in ROS Statement are negative. Past Medical History Past Medical History: Asthma Additional Past Medical History / Comment(s): Obesity, anxiety, depression, PTSD, chronic insomnia History of Any Multi-Drug Resistant Organisms: None Reported Past Surgical History: Adenoidectomy, Tonsillectomy Additional Past Surgical History / Comment(s): Right shouder surgery Past Anesthesia/Blood Transfusion Reactions: No Reported Reaction Past Psychological History: Anxiety, Depression, PTSD Smoking Status: Current every day smoker, Vaper Past Alcohol Use History: Occasional Past Drug Use History: Marijuana - Past Family History Father Family Medical History: Asthma, Coronary Artery Disease (CAD), Sleep Apnea/CPAP/BIPAP Additional Family Medical History / Comment(s): insomnia, snoring, mental illness (depression,anxiety) Mother Family Medical History: Cancer Additional Family Medical History / Comment(s): mental illness (anxiety, depression) General Exam General appearance: alert, in no apparent distress Eye exam: Present: normal appearance, PERRL, EOMI. Absent: scleral icterus, conjunctival injection, periorbital swelling Neck exam: Present: normal inspection. Absent: tenderness, meningismus, lymphadenopathy Respiratory exam: Present: normal lung sounds bilaterally. Absent: respiratory distress, wheezes, rales, rhonchi, stridor Cardiovascular Exam: Present: regular rate, normal rhythm, normal heart sounds. Absent: systolic murmur, diastolic murmur, rubs, gallop, clicks GI/Abdominal exam: Present: soft, normal bowel sounds. Absent: distended, tenderness, guarding, rebound, rigid Right Hand Wrist exam: Present: laceration (distal 5th digit 4 mm laceration, bleeding controlled) Neuro motor exam: Present: wrist extension intact, thumb opposition intact Vascular: Present: normal capillary refill, radial pulse (2+). Absent: vascular compromise Back exam: Present: normal inspection Course Vital Signs 08/23/24 21:40 Temperature 98.5 F Pulse Rate 79 Respiratory 16 Rate Blood Pressure 132/78 O2 Sat by Pulse 97 Oximetry Medical Decision Making - Medical Decision Making Was pt. sent in by a medical professional or institution (, PA, PAPER SLITTER, urgent care, hospital, or [facility]...) When possible be specific @ -No Did you speak to anyone other than the patient for history (EMS, parent, family, police, friend...)? What history was obtained from this source @ -No Did you review nursing and triage notes (agree or disagree)? Why? @ -I reviewed and agree with nursing and triage notes Were old charts reviewed (outside hosp., previous admission, EMS record, old EKG, old radiological studies, urgent care reports/EKG's, [facility] records)? Report findings @ -No old charts were reviewed Differential Diagnosis (chest pain, altered mental status, abdominal pain women, abdominal pain men, vaginal bleeding, weakness, fever, dyspnea, syncope, headache, dizziness, GI bleed, back pain, seizure, CVA, palpatations, mental health, musculoskeletal)? @ -Laceration, skin avulsion, this list not all inclusive EKG interpreted by me (3pts min.). @ -[None X-rays interpreted by me (1pt min.). @ -None done CT interpreted by me (1pt min.). @ -None done U/S interpreted by me (1pt. min.). @ -None done What testing was considered but not performed or refused? (CT, X-rays, U/S, labs)? Why? @ -None What meds were considered but not given or refused? Why? @ -None Did you discuss the management of the patient with other professionals (professionals i.e. , PA, PAPER SLITTER, lab, RT, psych nurse, manager social, artificial breeding technician, teacher, correctional officer sergeant, pillowcase cutter)? Give summary @ -No Was smoking cessation discussed for >3mins.? @ -No Was critical care preformed (if so, how long)? @ -No Were there social determinants of health that impacted care today? How? (Homelessness, low income, unemployed, alcoholism, drug addiction, transportation, low edu. Level, literacy, decrease access to med. care, snf, rehab)? @ -No Was there de-escalation of care discussed even if they declined (Discuss DNR or withdrawal of care, Hospice)? DNR status @ -No What co-morbidities impacted this encounter? (DM, HTN, Smoking, COPD, CAD, Cancer, CVA, ARF, Chemo, Hep., AIDS, mental health diagnosis, sleep apnea, morbid obesity)? @ -None Was patient admitted / discharged? Hospital course, mention meds given and route, prescriptions, significant lab abnormalities, going to OR and other pertinent info. @ -Discharge. 24-year-old female with laceration to right fifth distal digit. Laceration approximately 4 mm in length with no signs of active bleeding. Laceration is superficial and does not require suture repair. Area was cleansed with sterile water and bandaging applied. Patient arrived with tetanus vaccination. Discussed with Dr. Curry Undiagnosed new problem with uncertain prognosis? @ -No Drug Therapy requiring intensive monitoring for toxicity (Heparin, Nitro, Insulin, Cardizem)? @ -No Were any procedures done? @ -No Diagnosis/symptom? @ -laceration Acute, or Chronic, or Acute on Chronic? @ -acute Uncomplicated (without systemic symptoms) or Complicated (systemic symptoms)? @ -uncomplicated Side effects of treatment? @ -No Exacerbation, Progression, or Severe Exacerbation? @ -No Poses a threat to life or bodily function? How? (Chest pain, [place], [place], pneumonia, PE, COPD, DKA, ARF, appy, cholecystitis, CVA, Diverticulitis, Homicidal, Suicidal, threat to staff... and all critical care pts) @ -No Disposition Clinical Impression: Laceration Disposition: HOME SELF-CARE Condition: Good Instructions (If sedation given, give patient instructions): Laceration (ED) Additional Instructions: Please return to the Emergency Department if symptoms worsen or any other con cerns. Is patient prescribed a controlled substance at d/c from ED?: No Referrals: Crow Corona MD [Primary Care Provider] - 1-2 days Time of Disposition: 21:51
[2024-08-23 21:41] VITALS: BP 132/78; PULSE 79; RESP 16; TEMP 98.5
[2024-08-23] MEDS: DIPH,PERTUS(ACELL)TETVAC-LF 0.5 ML VIAL IM ONE (23:00)
== END 2024-08-23 23:06 | disposition home or self-care (01) ==
LOC: EC 21:04
DX: S61.216A Laceration without foreign body of right little finger without damage to nail, initial encounter (principal); F17.290 Nicotine dependence, other tobacco product, uncomplicated; E66.9 Obesity, unspecified; Z91.013 Allergy to seafood; Z68.41 Body mass index [BMI] 40.0-44.9, adult; Z23 Encounter for immunization; W26.0XXA Contact with knife, initial encounter; Y99.0 Civilian activity done for income or pay
CPT/HCPCS: 90471; 90715; 99282

== ENCOUNTER 2024-09-22 12:39 | Emergency (ER) | payer OTHER ==
[2024-09-22 14:33] LABS: Basophils % (A) 1 %; Eosinophils # (A) 0.4 k/uL (0-0.7); Eosinophils % (A) 4 %; HGB 14.2 gm/dL (11.4-16.0); Lymphocytes # (A) 2.3 k/uL (1.0-4.8); Lymphocytes % (A) 28 %; MCH 28.7 pg (25.0-35.0); MCHC 32.1 g/dL (31.0-37.0); MCV 89.3 fL (80.0-100.0); Mean Platelet Volume 7.1; Monocytes # (A) 0.4 k/uL (0-1.0); Monocytes % (A) 5 %; Neutrophils # (A) 5.2 k/uL (1.3-7.7); Neutrophils % (A) 62 %; Platelet Count 317 k/uL (150-450); RBC 4.93 m/uL (3.80-5.40); RDW 13.3 % (11.5-15.5); WBC 8.5 k/uL (3.8-10.6)
[2024-09-22] MEDS: SODIUM CHLORIDE 0.9% 1,000 ML IV STA (14:37)
[2024-09-22 14:38] LABS: Appearance,Urine Clear (Clear); Bilirubin,Urine Negative (Negative); Blood,Urine Negative (Negative); Color,Urine Colorless; Glucose,Urine (UA) Negative (Negative); Ketones,Urine Negative (Negative); Leukocyte Esterase,Urine Negative (Negative); Nitrite,Urine Negative (Negative); PH, Urine 7.5 (5.0-8.0); Protein,Urine Negative (Negative); Specific Gravity,Urine 1.005 (1.001-1.035); Urobilinogen,Urine <2.0 mg/dL (<2.0)
[2024-09-22] MEDS: KETOROLAC 15 MG/ML 1 ML VIAL IVP STA (14:38)
[2024-09-22] MEDS: ONDANSETRON 4 MG/2 ML VIAL IVP STA (14:38)
[2024-09-22 14:59] LABS: ALT 23 U/L (4-34); AST 20 U/L (14-36); African American GFR (CKD) >90 (>60 ml/min/1.73 sqM); Albumin 4.5 g/dL (3.5-5.0); Alkaline Phosphatase 52 U/L (38-126); Anion Gap 11 mmol/L; Blood Urea Nitrogen 7 mg/dL (7-17); Calcium 9.5 mg/dL (8.4-10.2); Carbon Dioxide 23 mmol/L (22-30); Chloride 107 mmol/L (98-107); Glucose 89 mg/dL (74-99); Lipase 30 U/L (23-300); Non-African American GFR(CKD) >90 (>60 ml/min/1.73 sqM); Potassium 4.5 mmol/L (3.5-5.1); Sodium 141 mmol/L (137-145); Total Bilirubin 0.4 mg/dL (0.2-1.3); Total Protein 7.3 g/dL (6.3-8.2)
--- NOTE | 2024-09-22 15:19 | CT ---
EXAMINATION TYPE: CT abdomen pelvis w con DATE OF EXAM: 09/22/2024 COMPARISON: None CLINICAL INDICATION: Female, 24 years old with history of periumbilical pain; PHH, COVID positive, pe riumbilical pain. TECHNIQUE: Performed without Oral Contrast and with IV Contrast, patient injected with 100 mL of Isovue 300. CT DLP: 2697.[address] CTDI: mGy Automated exposure control for dose reduction was used. FINDINGS: The lung bases are clear. The gallbladder is normal without distention, wall thickening, pericholecystic fluid or gallstones. T here is no biliary ductal dilatation. There is no focal mass or organomegaly involving the liver, pancreas, spleen or adrenal glands. There is no solid renal mass or hydronephrosis and there is homogeneous contrast enhancement of the r enal parenchyma. The caliber the abdominal aorta is normal is no retroperitoneal adenopathy or hemorr joy. The bowel loops are normal in caliber and there is no evidence of dilatation or obstruction. No infla mmatory changes are identified in the bowel wall or mesentery. The appendix is visualized and is norm al with no inflammation. There is a mild amount of stool within the colon There is no free intraperitoneal air or fluid. No pelvic mass, free fluid, abscess or adenopathy.. There is an IUD device within the uterus. The osseous structures and soft tissues are intact. IMPRESSION: No significant abnormality seen. No acute changes within the abdomen or pelvis. [facility], , 09/22/2024 3:16 PM
[2024-09-22 16:25] VITALS: BP 112/72; PULSE 68; RESP 19; TEMP 98.1
--- NOTE | 2024-09-22 16:33 | ED ---
Abdominal Pain HPI - General Chief Complaint: Abdominal Pain Stated Complaint: covid positive Time Seen by Provider: 09/22/24 12:55 Source: EMS Mode of arrival: EMS Limitations: no limitations - History of Present Illness Initial Comments: 24-year-old female presents emergency department for abdominal pain. States that it started last night but got worse this morning. It is located in the periumbilical region. She has associated nausea with vomiting. She did not take anything for the pain before coming in. She denies dysuria, hematuria or difficulty voiding. Denies diarrhea, constipation, black or bloody stools. Patient has not had any abdominal surgeries. No fevers. She did test positive for COVID on Thursday. She was placed on Paxlovid because of her history of asthma. Denies hospitalization due to her asthma. She denies any chest pain or shortness of breath. Does admit to some sinus congestion. No other alleviating, precipitating or modifying factors - Related Data Home Medications Medication Instructions Recorded Confirmed Albuterol Sulfate [Proair Hfa] 1 - 2 puff INHALATION RT-QID PRN 05/05/22 01/26/24 Desvenlafaxine [Pristiq ER] 200 mg PO DAILY 05/05/22 01/26/24 Naproxen [Naprosyn] 500 mg PO BID PRN 05/05/22 05/05/22 hydrOXYzine HCL 25 mg PO TID PRN 01/26/24 01/26/24 Previous Rx's Medication Instructions Recorded methylPREDNISolone [Medrol Dose 0 mg PO DIRECTED #1 packet 07/16/22 Pack] Ibuprofen [Motrin] 600 mg PO Q8HR PRN #20 tab 09/06/23 Cyclobenzaprine [Flexeril] 10 mg PO TID PRN #15 tab 10/11/23 Ibuprofen [Motrin] 600 mg PO Q8HR PRN #30 tab 10/11/23 Ibuprofen [Motrin] 600 mg PO Q8HR PRN #20 tab 11/13/23 Allergies Allergy/AdvReac Type Severity Reaction Status Date / Time shellfish derived [Shrimp] Allergy Unknown Verified 08/23/24 21:41 Review of Systems ROS Statement: Those systems with pertinent positive or pertinent negative responses have been documented in the HPI. ROS Other: All systems not noted in ROS Statement are negative. Past Medical History Past Medical History: Asthma Additional Past Medical History / Comment(s): Obesity, anxiety, depression, PTSD, chronic insomnia History of Any Multi-Drug Resistant Organisms: None Reported Past Surgical History: Adenoidectomy, Tonsillectomy Additional Past Surgical History / Comment(s): Right shouder surgery Past Anesthesia/Blood Transfusion Reactions: No Reported Reaction Past Psychological History: Anxiety, Depression, PTSD Smoking Status: Current every day smoker, Vaper Past Alcohol Use History: Occasional Past Drug Use History: Marijuana - Past Family History Father Family Medical History: Asthma, Coronary Artery Disease (CAD), Sleep Apnea/CPAP/BIPAP Additional Family Medical History / Comment(s): insomnia, snoring, mental illness (depression,anxiety) Mother Family Medical History: Cancer Additional Family Medical History / Comment(s): mental illness (anxiety, depression) General Exam Limitations: no limitations General appearance: alert, in no apparent distress Head exam: Present: atraumatic, normocephalic, normal inspection Eye exam: Present: normal appearance, PERRL, EOMI. Absent: scleral icterus, conjunctival injection, periorbital swelling ENT exam: Present: normal exam, mucous membranes moist Neck exam: Present: normal inspection. Absent: tenderness, meningismus, lymphadenopathy Respiratory exam: Present: normal lung sounds bilaterally. Absent: respiratory distress, wheezes, rales, rhonchi, stridor Cardiovascular Exam: Present: regular rate, normal rhythm, normal heart sounds. Absent: systolic murmur, diastolic murmur, rubs, gallop, clicks GI/Abdominal exam: Present: tenderness (Periumbilical), normal bowel sounds. Absent: distended, guarding, rebound, rigid Extremities exam: Present: normal inspection, full ROM, normal capillary refill. Absent: tenderness, pedal edema, joint swelling, calf tenderness Back exam: Present: normal inspection Neurological exam: Present: alert, oriented X3, CN II-XII intact Psychiatric exam: Present: normal affect, normal mood Skin exam: Present: warm, dry, intact, normal color. Absent: rash Course Vital Signs 09/22/24 09/22/24 12:51 16:23 Temperature 97.8 F 98.1 F Pulse Rate 59 L 68 Respiratory 18 19 Rate Blood Pressure 110/59 112/72 O2 Sat by Pulse 99 98 Oximetry Medical Decision Making - Medical Decision Making Was pt. sent in by a medical professional or institution (DAYO Calle, RECEIVING ROOM CLERK, urgent care, hospital, or retirement...) When possible be specific @ -No Did you speak to anyone other than the patient for history (EMS, parent, family, police, friend...)? What history was obtained from this source @ -No Did you review nursing and triage notes (agree or disagree)? Why? @ -I reviewed and agree with nursing and triage notes Were old charts reviewed (outside hosp., previous admission, EMS record, old EKG, old radiological studies, urgent care reports/EKG's, retirement records)? Report findings @ -No old charts were reviewed Differential Diagnosis (chest pain, altered mental status, abdominal pain women, abdominal pain men, vaginal bleeding, weakness, fever, dyspnea, syncope, headache, dizziness, GI bleed, back pain, seizure, CVA, palpatations, mental health, musculoskeletal)? @ -Differential Abdominal Pain Women: Appendicitis, Cholecystitis, diverticulosis, ischemic bowel, pancreatitis, hepatitis, UTI, gastroenteritis, AAA, incarcerated hernia, bowel obstruction, constipation, inflammatory bowel, hepatitis, peptic ulcer disease, splenic infarction, perforated viscus, vulvitis, ovarian torsion, PID, kidney stone, placenta abruption, this is not meant to be an all-inclusive list EKG interpreted by me (3pts min.). @ -Not done X-rays interpreted by me (1pt min.). @ -None done CT interpreted by me (1pt min.). @ -Yes and demonstrates no acute process U/S interpreted by me (1pt. min.). @ -None done What testing was considered but not performed or refused? (CT, X-rays, U/S, labs)? Why? @ -None What meds were considered but not given or refused? Why? @ -None Did you discuss the management of the patient with other professionals (professionals i.e. DAYO Calle, RECEIVING ROOM CLERK, lab, RT, psych nurse, adoption social worker, pet groomer, teacher, armored vehicle officer, registered nurse hh case manager)? Give summary @ -No Was smoking cessation discussed for >3mins.? @ -No Was critical care preformed (if so, how long)? @ -No Were there social determinants of health that impacted care today? How? (Homelessness, low income, unemployed, alcoholism, drug addiction, transportation, low edu. Level, literacy, decrease access to med. care, usp, rehab)? @ -No Was there de-escalation of care discussed even if they declined (Discuss DNR or withdrawal of care, Hospice)? DNR status @ -No What co-morbidities impacted this encounter? (DM, HTN, Smoking, COPD, CAD, [place] cer, CVA, ARF, Chemo, Hep., AIDS, mental health diagnosis, sleep apnea, morbid obesity)? @ -None Was patient admitted / discharged? Hospital course, mention meds given and route, prescriptions, significant lab abnormalities, going to OR and other pertinent info. @ -Upon arrival patient seen and evaluated in bed 8. Thorough history and physical exam was performed. IV access was established. Laboratory studies are conducted. CT was performed. Results are discussed with the patient. Patient questions whether her symptoms are due to the Paxlovid that she was placed on. States that her symptoms started shortly after the initiation of this drug and symptoms worsened today after ingesting the medication. Informed her of the side effects of Paxlovid. As the patient has minimal COVID symptoms with no history of hospitalization due to asthma I did inform her that it may be beneficial to discontinue the Paxlovid as her side effects appear to be more significant than the benefit. Patient understood this. She will follow-up with her primary care doctor within 2 to 4 days. Return for any new or worsening symptoms. Patient agreeable plan and she is discharged in stable condition Undiagnosed new problem with uncertain prognosis? @ -No Drug Therapy requiring intensive monitoring for toxicity (Heparin, Nitro, Insulin, Cardizem)? @ -No Were any procedures done? @ -No Diagnosis/symptom? @ -Acute abdominal pain, possible medication side effect Acute, or Chronic, or Acute on Chronic? @ -Acute Uncomplicated (without systemic symptoms) or Complicated (systemic symptoms)? @ -complicated Side effects of treatment? @ -No Exacerbation, Progression, or Severe Exacerbation? @ -No Poses a threat to life or bodily function? How? (Chest pain, [place], [place], pneumonia, PE, COPD, DKA, ARF, appy, cholecystitis, CVA, Diverticulitis, Homicidal, Suicidal, threat to staff... and all critical care pts) @ -No - Lab Data Result diagrams: 09/22/24 14:25 09/22/24 14:25 Lab Results 09/22/24 09/22/24 09/22/24 Range/Units 14:25 14:25 14:25 WBC 8.5 (3.8-10.6) k/uL RBC 4.93 (3.80-5.40) m/uL Hgb 14.2 (11.4-16.0) gm/dL Hct 44.0 (34.0-46.0) % MCV 89.3 (80.0-100.0) fL MCH 28.7 (25.0-35.0) pg MCHC 32.1 (31.0-37.0) g/dL RDW 13.3 (11.5-15.5) % Plt Count 317 (150-450) k/uL MPV 7.1 Neutrophils % 62 % Lymphocytes % 28 % Monocytes % 5 % Eosinophils % 4 % Basophils % 1 % Neutrophils # 5.2 (1.3-7.7) k/uL Lymphocytes # 2.3 (1.0-4.8) k/uL Monocytes # 0.4 (0-1.0) k/uL Eosinophils # 0.4 (0-0.7) k/uL Basophils # 0.0 (0-0.2) k/uL Sodium (137-145) mmol/L Potassium (3.5-5.1) mmol/L Chloride (98-107) mmol/L Carbon Dioxide (22-30) mmol/L Anion Gap mmol/L BUN (7-17) mg/dL Creatinine (0.52-1.04) mg/dL Est GFR (CKD-EPI)AfAm (>60 ml/min/1.73 sqM) Est GFR (CKD-EPI)NonAf (>60 ml/min/1.73 sqM) Glucose (74-99) mg/dL Calcium (8.4-10.2) mg/dL Total Bilirubin (0.2-1.3) mg/dL AST (14-36) U/L ALT (4-34) U/L Alkaline Phosphatase (38-126) U/L Total Protein (6.3-8.2) g/dL Albumin (3.5-5.0) g/dL Lipase (23-300) U/L Urine Color Colorless Urine Appearance Clear (Clear) Urine pH 7.5 (5.0-8.0) Ur Specific [place] 1.005 (1.001-1.035) Urine Protein Negative (Negative) Urine Glucose (UA) Negative (Negative) Urine Ketones Negative (Negative) Urine Blood Negative (Negative) Urine Nitrite Negative (Negative) Urine Bilirubin Negative (Negative) Urine Urobilinogen <2.0 (<2.0) mg/dL Ur Leukocyte Esterase Negative (Negative) Urine HCG, Qual Not Detected (Not Detectd) 09/22/24 Range/Units 14:25 WBC (3.8-10.6) k/uL RBC (3.80-5.40) m/uL Hgb (11.4-16.0) gm/dL Hct (34.0-46.0) % MCV (80.0-100.0) fL MCH (25.0-35.0) pg MCHC (31.0-37.0) g/dL RDW (11.5-15.5) % Plt Count (150-450) k/uL MPV Neutrophils % % Lymphocytes % % Monocytes % % Eosinophils % % Basophils % % Neutrophils # (1.3-7.7) k/uL Lymphocytes # (1.0-4.8) k/uL Monocytes # (0-1.0) k/uL Eosinophils # (0-0.7) k/uL Basophils # (0-0.2) k/uL Sodium 141 (137-145) mmol/L Potassium 4.5 (3.5-5.1) mmol/L Chloride 107 (98-107) mmol/L Carbon Dioxide 23 (22-30) mmol/L Anion Gap 11 mmol/L BUN 7 (7-17) mg/dL Creatinine 0.44 L (0.52-1.04) mg/dL Est GFR (CKD-EPI)AfAm >90 (>60 ml/min/1.73 sqM) Est GFR (CKD-EPI)NonAf >90 (>60 ml/min/1.73 sqM) Glucose 89 (74-99) mg/dL Calcium 9.5 (8.4-10.2) mg/dL Total Bilirubin 0.4 (0.2-1.3) mg/dL AST 20 (14-36) U/L ALT 23 (4-34) U/L Alkaline Phosphatase 52 (38-126) U/L Total Protein 7.3 (6.3-8.2) g/dL Albumin 4.5 (3.5-5.0) g/dL Lipase 30 (23-300) U/L Urine Color Urine Appearance (Clear) Urine pH (5.0-8.0) Ur Specific [place] (1.001-1.035) Urine Protein (Negative) Urine Glucose (UA) (Negative) Urine Ketones (Negative) Urine Blood (Negative) Urine Nitrite (Negative) Urine Bilirubin (Negative) Urine Urobilinogen (<2.0) mg/dL Ur Leukocyte Esterase (Negative) Urine HCG, Qual (Not Detectd) Disposition Clinical Impression: Abdominal pain, Medication side effect Disposition: HOME SELF-CARE Condition: Stable Instructions (If sedation given, give patient instructions): Abdominal Pain (ED) Additional Instructions: Your labs and imaging was normal in the emergency department. If your symptoms worsen, please return to the emergency department. You may take any over-the-co unter medications such as Pepcid, Pepto for your symptoms. Discontinue the Paxlovid. Return for any new or worsening symptoms Is patient prescribed a controlled substance at d/c from ED?: No Referrals: Crow Corona MD [Primary Care Provider] - 1-2 days Time of Disposition: 16:33
[2024-09-22] MEDS: DICYCLOMINE 10 MG CAP PO STA (17:17)
== END 2024-09-22 17:30 | disposition home or self-care (01) ==
LOC: EC 12:39
DX: T88.7XXA Unspecified adverse effect of drug or medicament, initial encounter (principal); Z91.013 Allergy to seafood
CPT/HCPCS: 36415; 80053; 83690; 85025; 81003; 81025; 74177; 99284; 96374; 96375; 96361 ×2; J2405; J1885; Q9967

== ENCOUNTER 2024-12-08 19:49 | Emergency (ER) | payer OTHER ==
[2024-12-08 19:56] VITALS: TEMP 97.6
--- NOTE | 2024-12-08 21:09 | ED ---
General Adult HPI - General Chief complaint: Weakness Stated complaint: high blood pressure Time Seen by Provider: 12/08/24 20:01 Source: patient, RN notes reviewed Mode of arrival: ambulatory Limitations: no limitations - History of Present Illness Initial comments: 24-year-old female presents to the emergency department for evaluation of weakness. Patient states that today while at work she felt like her blood pressure dropped. She notes that she got shaky, diaphoretic, dizzy. She states that she has a history of low blood pressure and takes midodrine. She notes that the symptoms lasted around an hour and have improved but she does report so me continued weakness. She denies any recent illness. Denies fever, chills. Denies any urinary symptoms. She has an IUD. - Related Data Home Medications Medication Instructions Recorded Confirmed Albuterol Sulfate [Proair Hfa] 1 - 2 puff INHALATION RT-QID PRN 05/05/22 01/26/24 Desvenlafaxine [Pristiq ER] 200 mg PO DAILY 05/05/22 01/26/24 Naproxen [Naprosyn] 500 mg PO BID PRN 05/05/22 05/05/22 hydrOXYzine HCL 25 mg PO TID PRN 01/26/24 01/26/24 Previous Rx's Medication Instructions Recorded methylPREDNISolone [Medrol Dose 0 mg PO DIRECTED #1 packet 07/16/22 Pack] Ibuprofen [Motrin] 600 mg PO Q8HR PRN #20 tab 09/06/23 Cyclobenzaprine [Flexeril] 10 mg PO TID PRN #15 tab 10/11/23 Ibuprofen [Motrin] 600 mg PO Q8HR PRN #30 tab 10/11/23 Ibuprofen [Motrin] 600 mg PO Q8HR PRN #20 tab 11/13/23 Allergies Allergy/AdvReac Type Severity Reaction Status Date / Time shellfish derived [Shrimp] Allergy Unknown Verified 12/08/24 19:55 Review of Systems ROS Statement: Those systems with pertinent positive or pertinent negative responses have been documented in the HPI. ROS Other: All systems not noted in ROS Statement are negative. Past Medical History Past Medical History: Asthma Additional Past Medical History / Comment(s): Obesity, anxiety, depression, PTSD, chronic insomnia History of Any Multi-Drug Resistant Organisms: None Reported Past Surgical History: Adenoidectomy, Tonsillectomy Additional Past Surgical History / Comment(s): Right shouder surgery Past Anesthesia/Blood Transfusion Reactions: No Reported Reaction Past Psychological History: Anxiety, Depression, PTSD Smoking Status: Current every day smoker, Vaper Past Alcohol Use History: Occasional Past Drug Use History: Marijuana - Past Family History Father Family Medical History: Asthma, Coronary Artery Disease (CAD), Sleep Apnea/CPAP/BIPAP Additional Family Medical History / Comment(s): insomnia, snoring, mental illness (depression,anxiety) Mother Family Medical History: Cancer Additional Family Medical History / Comment(s): mental illness (anxiety, depression) General Exam Limitations: no limitations General appearance: alert, in no apparent distress Head exam: Present: atraumatic, normocephalic, normal inspection Eye exam: Present: normal appearance, PERRL, EOMI. Absent: scleral icterus, conjunctival injection, periorbital swelling ENT exam: Present: normal exam, mucous membranes moist Respiratory exam: Present: normal lung sounds bilaterally. Absent: respiratory distress, wheezes, rales, rhonchi, stridor Cardiovascular Exam: Present: regular rate, normal rhythm, normal heart sounds. Absent: systolic murmur, diastolic murmur, rubs, gallop, clicks GI/Abdominal exam: Present: soft, normal bowel sounds. Absent: distended, tenderness, guarding, rebound, rigid Extremities exam: Present: normal inspection, full ROM, normal capillary refill. Absent: tenderness, pedal edema, joint swelling, calf tenderness Back exam: Present: normal inspection Neurological exam: Present: alert, oriented X3 Psychiatric exam: Present: normal affect, normal mood Skin exam: Present: warm, dry, intact, normal color. Absent: rash Course Vital Signs 12/08/24 12/08/24 12/08/24 19:51 22:39 22:53 Temperature 97.6 F Pulse Rate 69 61 Pulse Rate [ 90 Right Sitting Pulse Oximetery ] Pulse Rate [ Right Standing Pulse Oximetery ] Pulse Rate [ 85 Right Supine Pulse Oximetery ] Respiratory 20 19 20 Rate Blood Pressure 125/84 115/74 Blood Pressure 148/93 [Left Radial Artery Sitting] Blood Pressure [Left Radial Artery Standing ] Blood Pressure 123/81 [Left Radial Artery Supine] O2 Sat by Pulse 98 99 98 Oximetry 12/08/24 12/08/24 22:54 22:55 Temperature Pulse Rate Pulse Rate [ Right Sitting Pulse Oximetery ] Pulse Rate [ 85 Right Standing Pulse Oximetery ] Pulse Rate [ Right Supine Pulse Oximetery ] Respiratory 20 Rate Blood Pressure Blood Pressure [Left Radial Artery Sitting] Blood Pressure 129/92 [Left Radial Artery Standing ] Blood Pressure [Left Radial Artery Supine] O2 Sat by Pulse 93 L 97 Oximetry Medical Decision Making - Medical Decision Making Was pt. sent in by a medical professional or institution (, PA, SHORTHAND TEACHER, urgent care, hospital, or fpc...) When possible be specific @ -No Did you speak to anyone other than the patient for history (EMS, parent, family, police, friend...)? What history was obtained from this source @ -No Did you review nursing and triage notes (agree or disagree)? Why? @ -I reviewed and agree with nursing and triage notes Were old charts reviewed (outside hosp., previous admission, EMS record, old EKG, old radiological studies, urgent care reports/EKG's, fpc records)? Report findings @ -No old charts were reviewed Differential Diagnosis (chest pain, altered mental status, abdominal pain women, abdominal pain men, vaginal bleeding, weakness, fever, dyspnea, syncope, headache, dizziness, GI bleed, back pain, seizure, CVA, palpatations, mental health, musculoskeletal)? @ -Differential Weakness: Hypoglycemia, shock, sepsis, hyponatremia, anemia, infection, NM, ETOH, adverse medicine reaction, overdose, stroke, this is not meant to be an all-inclusive list. EKG interpreted by me (3pts min.). @ -[facility]KG [facility] shows sinus rhythm with sinus arrhythmia rate 65, SD 162, QRS 110, QTQTc [id number] X-rays interpreted by me (1pt min.). @ -Chest x-ray shows no acute process CT interpreted by me (1pt min.). @ -None done U/S interpreted by me (1pt. min.). @ -None done What testing was considered but not performed or refused? (CT, X-rays, U/S, labs)? Why? @ -None What meds were considered but not given or refused? Why? @ -None Did you discuss the management of the patient with other professionals (professionals i.e. , DAYO, SHORTHAND TEACHER, lab, RT, psych nurse, social welfare clerk, training designer, teacher, juvenile justice officer, correctional counselor/case manager)? Give summary @ -No Was smoking cessation discussed for >3mins.? @ -No Was critical care preformed (if so, how long)? @ -No Were there social determinants of health that impacted care today? How? (Homelessness, low income, unemployed, alcoholism, drug addiction, transportation, low edu. Level, literacy, decrease access to med. care, senior care, rehab)? @ -No Was there de-escalation of care discussed even if they declined (Discuss DNR or withdrawal of care, Hospice)? DNR status @ -No What co-morbidities impacted this encounter? (DM, HTN, Smoking, COPD, CAD, Cancer, CVA, ARF, Chemo, Hep., AIDS, mental health diagnosis, sleep apnea, morbid obesity)? @ -None Was patient admitted / discharged? Hospital course, mention meds given and route, prescriptions, significant lab abnormalities, going to OR and other pertinent info. @ -Discharge. Patient presented emergency department for evaluation of weakness. Laboratory studies obtained revealing no significant leukocytosis, .6; normal coagulation studies; CMP on actionable, negative troponin UA shows no evidence of infectious process, negative urine hCG. Negative for COVID, influenza, RSV. Chest x-ray shows no acute process. Patient was administered IV fluids in the emergency department. She is feeling better she will be discharged home. She is understanding agreeable with plan. Patient stable at time of discharge. Case discussed with Dr. Jeong Undiagnosed new problem with uncertain prognosis? @ -No Drug Therapy requiring intensive monitoring for toxicity (Heparin, Nitro, Insulin, Cardizem)? @ -No Were any procedures done? @ -No Diagnosis/symptom? @ -Weakness, palpitations Acute, or Chronic, or Acute on Chronic? @ -Acute Uncomplicated (without systemic symptoms) or Complicated (systemic symptoms)? @ -Uncomplicated Side effects of treatment? @ -No Exacerbation, Progression, or Severe Exacerbation? @ -No Poses a threat to life or bodily function? How? (Chest pain, USA, NM, pneumonia, PE, COPD, DKA, ARF, appy, cholecystitis, CVA, Diverticulitis, Homicidal, Suicidal, threat to staff... and all critical care pts) @ -No - Lab Data Result diagrams: 12/08/24 21:24 12/08/24 21:24 Lab Results 12/08/24 12/08/24 12/08/24 Range/Units 21:24 21:24 21:24 WBC 9.9 (3.8-10.6) k/uL RBC 4.81 (3.80-5.40) m/uL Hgb 13.6 (11.4-16.0) gm/dL Hct 42.1 (34.0-46.0) % MCV 87.4 (80.0-100.0) fL MCH 28.3 (25.0-35.0) pg MCHC 32.4 (31.0-37.0) g/dL RDW 12.9 (11.5-15.5) % Plt Count 372 (150-450) k/uL MPV 7.2 Neutrophils % 62 % Lymphocytes % 29 % Monocytes % 5 % Eosinophils % 3 % Basophils % 0 % Neutrophils # 6.1 (1.3-7.7) k/uL Lymphocytes # 2.9 (1.0-4.8) k/uL Monocytes # 0.5 (0-1.0) k/uL Eosinophils # 0.3 (0-0.7) k/uL Basophils # 0.0 (0-0.2) k/uL PT 10.7 (10.0-12.5) sec INR 1.0 (<1.2) APTT 24.2 (22.0-30.0) sec Sodium 138 (137-145) mmol/L Potassium 4.1 (3.5-5.1) mmol/L Chloride 103 (98-107) mmol/L Carbon Dioxide 26 (22-30) mmol/L Anion Gap 9 mmol/L BUN 11 (7-17) mg/dL Creatinine 0.45 L (0.52-1.04) mg/dL Est GFR (CKD-EPI)AfAm >90 (>60 ml/min/1.73 sqM) Est GFR (CKD-EPI)NonAf >90 (>60 ml/min/1.73 sqM) Glucose 81 (74-99) mg/dL Calcium 9.9 (8.4-10.2) mg/dL Magnesium 1.9 (1.6-2.3) mg/dL Total Bilirubin 0.4 (0.2-1.3) mg/dL AST 28 (14-36) U/L ALT 33 (4-34) U/L Alkaline Phosphatase 50 (38-126) U/L Troponin I (0.000-0.034) ng/mL Total Protein 7.8 (6.3-8.2) g/dL Albumin 4.7 (3.5-5.0) g/dL Urine Color Urine Appearance (Clear) Urine pH (5.0-8.0) Ur Specific [place] (1.001-1.035) Urine Protein (Negative) Urine Glucose (UA) (Negative) Urine Ketones (Negative) Urine Blood (Negative) Urine Nitrite (Negative) Urine Bilirubin (Negative) Urine Urobilinogen (<2.0) mg/dL Ur Leukocyte Esterase (Negative) Urine HCG, Qual (Not Detectd) Influenza Type A (PCR) (Not Detectd) Influenza Type B (PCR) (Not Detectd) RSV (PCR) (Not Detectd) SARS-CoV-2 (PCR) (Not Detectd) 12/08/24 12/08/24 12/08/24 Range/Units 21:24 21:28 21:29 WBC (3.8-10.6) k/uL RBC (3.80-5.40) m/uL Hgb (11.4-16.0) gm/dL Hct (34.0-46.0) % MCV (80.0-100.0) fL MCH (25.0-35.0) pg MCHC (31.0-37.0) g/dL RDW (11.5-15.5) % Plt Count (150-450) k/uL MPV Neutrophils % % Lymphocytes % % Monocytes % % Eosinophils % % Basophils % % Neutrophils # (1.3-7.7) k/uL Lymphocytes # (1.0-4.8) k/uL Monocytes # (0-1.0) k/uL Eosinophils # (0-0.7) k/uL Basophils # (0-0.2) k/uL PT (10.0-12.5) sec INR (<1.2) APTT (22.0-30.0) sec Sodium (137-145) mmol/L Potassium (3.5-5.1) mmol/L Chloride (98-107) mmol/L Carbon Dioxide (22-30) mmol/L Anion Gap mmol/L BUN (7-17) mg/dL Creatinine (0.52-1.04) mg/dL Est GFR (CKD-EPI)AfAm (>60 ml/min/1.73 sqM) Est GFR (CKD-EPI)NonAf (>60 ml/min/1.73 sqM) Glucose (74-99) mg/dL Calcium (8.4-10.2) mg/dL Magnesium (1.6-2.3) mg/dL Total Bilirubin (0.2-1.3) mg/dL AST (14-36) U/L ALT (4-34) U/L Alkaline Phosphatase (38-126) U/L Troponin I <0.012 (0.000-0.034) ng/mL Total Protein (6.3-8.2) g/dL Albumin (3.5-5.0) g/dL Urine Color Colorless Urine Appearance Clear (Clear) Urine pH 6.5 (5.0-8.0) Ur Specific [place] 1.011 (1.001-1.035) Urine Protein Negative (Negative) Urine Glucose (UA) Negative (Negative) Urine Ketones Negative (Negative) Urine Blood Negative (Negative) Urine Nitrite Negative (Negative) Urine Bilirubin Negative (Negative) Urine Urobilinogen <2.0 (<2.0) mg/dL Ur Leukocyte Esterase Negative (Negative) Urine HCG, Qual (Not Detectd) Influenza Type A (PCR) Not Detected (Not Detectd) Influenza Type B (PCR) Not Detected (Not Detectd) RSV (PCR) Not Detected (Not Detectd) SARS-CoV-2 (PCR) Not Detected (Not Detectd) 12/08/24 Range/Units 21:29 WBC (3.8-10.6) k/uL RBC (3.80-5.40) m/uL Hgb (11.4-16.0) gm/dL Hct (34.0-46.0) % MCV (80.0-100.0) fL MCH (25.0-35.0) pg MCHC (31.0-37.0) g/dL RDW (11.5-15.5) % Plt Count (150-450) k/uL MPV Neutrophils % % Lymphocytes % % Monocytes % % Eosinophils % % Basophils % % Neutrophils # (1.3-7.7) k/uL Lymphocytes # (1.0-4.8) k/uL Monocytes # (0-1.0) k/uL Eosinophils # (0-0.7) k/uL Basophils # (0-0.2) k/uL PT (10.0-12.5) sec INR (<1.2) APTT (22.0-30.0) sec Sodium (137-145) mmol/L Potassium (3.5-5.1) mmol/L Chloride (98-107) mmol/L Carbon Dioxide (22-30) mmol/L Anion Gap mmol/L BUN (7-17) mg/dL Creatinine (0.52-1.04) mg/dL Est GFR (CKD-EPI)AfAm (>60 ml/min/1.73 sqM) Est GFR (CKD-EPI)NonAf (>60 ml/min/1.73 sqM) Glucose (74-99) mg/dL Calcium (8.4-10.2) mg/dL Magnesium (1.6-2.3) mg/dL Total Bilirubin (0.2-1.3) mg/dL AST (14-36) U/L ALT (4-34) U/L Alkaline Phosphatase (38-126) U/L Troponin I (0.000-0.034) ng/mL Total Protein (6.3-8.2) g/dL Albumin (3.5-5.0) g/dL Urine Color Urine Appearance (Clear) Urine pH (5.0-8.0) Ur Specific [place] (1.001-1.035) Urine Protein (Negative) Urine Glucose (UA) (Negative) Urine Ketones (Negative) Urine Blood (Negative) Urine Nitrite (Negative) Urine Bilirubin (Negative) Urine Urobilinogen (<2.0) mg/dL Ur Leukocyte Esterase (Negative) Urine HCG, Qual Not Detected (Not Detectd) Influenza Type A (PCR) (Not Detectd) Influenza Type B (PCR) (Not Detectd) RSV (PCR) (Not Detectd) SARS-CoV-2 (PCR) (Not Detectd) Disposition Clinical Impression: Palpitations Disposition: HOME SELF-CARE Condition: Stable Instructions (If sedation given, give patient instructions): Heart Palpitations (ED) Additional Instructions: Please follow up with your primary care provider. Return to the emergency department for new or worsening symptoms. Is patient prescribed a controlled substance at d/c from ED?: No Referrals: Crow Corona MD [Primary Care Provider] - 1-2 days
[2024-12-08] MEDS: SODIUM CHLORIDE 0.9% 1,000 ML IV ONE (21:27)
[2024-12-08 21:42] LABS: Basophils % (A) 0 %; Eosinophils # (A) 0.3 k/uL (0-0.7); Eosinophils % (A) 3 %; HCT 42.1 % (34.0-46.0); HGB 13.6 gm/dL (11.4-16.0); Lymphocytes # (A) 2.9 k/uL (1.0-4.8); Lymphocytes % (A) 29 %; MCH 28.3 pg (25.0-35.0); MCHC 32.4 g/dL (31.0-37.0); MCV 87.4 fL (80.0-100.0); Mean Platelet Volume 7.2; Monocytes # (A) 0.5 k/uL (0-1.0); Monocytes % (A) 5 %; Neutrophils # (A) 6.1 k/uL (1.3-7.7); Neutrophils % (A) 62 %; Platelet Count 372 k/uL (150-450); RBC 4.81 m/uL (3.80-5.40); RDW 12.9 % (11.5-15.5); WBC 9.9 k/uL (3.8-10.6)
[2024-12-08 21:42] LABS: Appearance,Urine Clear (Clear); Bilirubin,Urine Negative (Negative); Blood,Urine Negative (Negative); Color,Urine Colorless; Glucose,Urine (UA) Negative (Negative); Ketones,Urine Negative (Negative); Leukocyte Esterase,Urine Negative (Negative); Nitrite,Urine Negative (Negative); PH, Urine 6.5 (5.0-8.0); Protein,Urine Negative (Negative); Specific Gravity,Urine 1.011 (1.001-1.035); Urobilinogen,Urine <2.0 mg/dL (<2.0)
--- NOTE | 2024-12-08 21:47 | XR ---
EXAMINATION TYPE: XR chest 2V DATE OF EXAM: 12/08/2024 9:43 PM COMPARISON: 07/16/2022 CLINICAL INDICATION: Female, 24 years old with history of Weakness, TECHNIQUE: Frontal and lateral views of the chest are obtained. FINDINGS: There is no focal air space opacity, pleural effusion, or pneumothorax seen. The cardiac silhouette size is within normal limits. The osseous structures are intact. IMPRESSION: No acute cardiopulmonary process. [facility], , 12/08/2024 9:45 PM
[2024-12-08 21:51] LABS: Partial Thromboplastin Time 24.2 sec (22.0-30.0); Prothrombin Time 10.7 sec (10.0-12.5)
[2024-12-08 21:56] LABS: ALT 33 U/L (4-34); AST 28 U/L (14-36); African American GFR (CKD) >90 (>60 ml/min/1.73 sqM); Albumin 4.7 g/dL (3.5-5.0); Alkaline Phosphatase 50 U/L (38-126); Anion Gap 9 mmol/L; Blood Urea Nitrogen 11 mg/dL (7-17); Calcium 9.9 mg/dL (8.4-10.2); Carbon Dioxide 26 mmol/L (22-30); Chloride 103 mmol/L (98-107); Glucose 81 mg/dL (74-99); Magnesium 1.9 mg/dL (1.6-2.3); Non-African American GFR(CKD) >90 (>60 ml/min/1.73 sqM); Potassium 4.1 mmol/L (3.5-5.1); Sodium 138 mmol/L (137-145); Total Bilirubin 0.4 mg/dL (0.2-1.3); Total Protein 7.8 g/dL (6.3-8.2)
[2024-12-08 22:19] LABS: Influenza A Not Detected (Not Detectd); Influenza B Not Detected (Not Detectd); RSV Not Detected (Not Detectd)
[2024-12-08 22:58] VITALS: PULSE 85; RESP 20
[2024-12-08 22:59] VITALS: BP 129/92
== END 2024-12-08 23:22 | disposition home or self-care (01) ==
LOC: EC 19:49
DX: R00.2 Palpitations (principal); F17.290 Nicotine dependence, other tobacco product, uncomplicated; Z91.013 Allergy to seafood
CPT/HCPCS: 36415; 71046; 80053; 81003; 81025; 83735; 84484; 85025; 85610; 85730; 87636; 93005; 96360; 99285

== ENCOUNTER 2025-03-06 06:34 | Day surgery (SDC) | payer OTHER ==
[2025-03-03 08:27] VITALS: BMI 44.4
[2025-03-06] MEDS: SODIUM CHLORIDE 0.9% 500 ML 500 ML IV ONE (07:14)
[2025-03-06] MEDS: SODIUM CHLORIDE 0.9% 1,000 ML IV SCH (07:14)
[2025-03-06 07:23] VITALS: BP 123/72; PULSE 55; RESP 16; TEMP 98.4
--- NOTE | 2025-03-07 11:19 | P.EPPROC ---
- EP Procedure Note Electrophysiology Procedure Note: Diagnosis: Recurrent presyncope Twelve-lead EKG shows sinus rhythm normal MA narrow QRS normal ST segments Tilt table test per protocol Baseline blood pressure 108/65 mmHg Baseline heart rate 56 beats a minute Patient was tilted upright on maculas 70 degrees per protocol Mild increase in heart rate to about 105 beats a minute within the first 10 minutes No drop in blood pressure No evidence for neurocardiogenic phenomena When she was laid supine her heart rates came down to 50-60 bpm Impression Mild orthostatic intolerance without any significant symptoms No evidence for secondary neurocardiogenic phenomena
== END 2025-03-06 09:07 | disposition home or self-care (01) ==
LOC: CATHEP 06:34
PROVIDERS: ATTEND Internal Medicine Clinical Cardiac Electrophysiology
DX: R55 Syncope and collapse (principal); J45.909 Unspecified asthma, uncomplicated; E66.01 Morbid (severe) obesity due to excess calories
CPT/HCPCS: 84703; 93660